=== PATIENT | male | born 1955 | race Caucasian/White ===

== ENCOUNTER → 2021-11-03 | Outpatient (CLI) | payer MEDICARE ==
[2021-11-03 12:43] LABS: Basophils # (A) 0.1 k/uL (0-0.2); Basophils % (A) 1 %; Eosinophils # (A) 0.5 k/uL (0-0.7); Eosinophils % (A) 6 %; HCT 52.1 % (39.0-53.0); HGB 16.3 gm/dL (13.0-17.5); Lymphocytes # (A) 1.3 k/uL (1.0-4.8); Lymphocytes % (A) 13 %; MCH 31.6 pg (25.0-35.0); MCHC 31.4 g/dL (31.0-37.0); MCV 100.7 fL (80.0-100.0); Macrocytosis Slight; Mean Platelet Volume 7.4; Monocytes # (A) 0.7 k/uL (0-1.0); Monocytes % (A) 7 %; Neutrophils % (A) 72 %; Platelet Count 334 k/uL (150-450); RBC 5.17 m/uL (4.30-5.90); RDW 13.9 % (11.5-15.5); WBC 9.7 k/uL (3.8-10.6)
[2021-11-03 13:00] LABS: African American GFR (CKD) >90 (>60 ml/min/1.73 sqM); Anion Gap 8 mmol/L; Blood Urea Nitrogen 11 mg/dL (9-20); Calcium 9.3 mg/dL (8.4-10.2); Carbon Dioxide 31 mmol/L (22-30); Chloride 100 mmol/L (98-107); Glucose 124 mg/dL (74-99); Non-African American GFR(CKD) >90 (>60 ml/min/1.73 sqM); Potassium 4.2 mmol/L (3.5-5.1); Sodium 139 mmol/L (137-145)
[2021-11-03 13:01] LABS: Amorphous Sediment,Urine Rare /hpf; Appearance,Urine Cloudy (Clear); Bacteria,Urine Rare /hpf; Bilirubin,Urine Negative (Negative); Blood,Urine Negative (Negative); Color,Urine Yellow; Glucose,Urine (UA) Negative (Negative); Hyaline Casts,Urine 1 /lpf (0-2); Ketones,Urine Negative (Negative); Leukocyte Esterase,Urine Large (Negative); Mucus,Urine Rare /hpf; Nitrite,Urine Positive (Negative); Protein,Urine Trace (Negative); RBC,Urine 3 /hpf (0-5); Specific Gravity,Urine 1.007 (1.001-1.035); Squamous Epithelial Cell,Urine <1 /hpf (0-4); Urobilinogen,Urine <2.0 mg/dL (<2.0); WBC,Urine 93 /hpf (0-5)
== END | disposition home or self-care (01) ==
LOC: LABPAT 12:08
PROVIDERS: ATTEND Urology
DX: Z01.812 Encounter for preprocedural laboratory examination (principal); N40.1 Benign prostatic hyperplasia with lower urinary tract symptoms; R31.29 Other microscopic hematuria
CPT/HCPCS: 80048; 81001; 85025; 87086

== ENCOUNTER → 2021-11-04 | Outpatient (CLI) | payer MEDICARE | END | disposition home or self-care (01) | LOC: LABPAT 14:23 | PROVIDERS: ATTEND Urology | DX: Z01.812 Encounter for preprocedural laboratory examination (principal) | CPT/HCPCS: 93005 ==

== ENCOUNTER 2021-11-11 05:45 | Inpatient (IN) | payer MEDICARE ==
[2021-11-04 13:43] VITALS: BMI 21.4
--- NOTE | 2021-11-10 09:40 | P.HPIHPCON ---
History of Present Illness H&P Date: 11/10/21 This a 66 yo male with hx of urinary retention, TRUS showed 132 gram prostate. Discussed given the size of his prostate the recommended approach is either a HoLEP or Robotic simple prostatecomy. discussed the risk and benefit of each procedure in detail. He agreed to proceed with a robotic simple prostatectomy. Discussed with him the risk of surgery which includes but not limited to bleeding, infection, injury to nearby organs which includes but not limited to bowel, ureter, rectum, or blood vessels.. Discussed also with him risk from anesthesia which includes but not limited to heart attack, stroke, blood clots. Discussed with him also the risk of persistent retention even with simple p rostatectomy. Discussed the risk of erectile dysfunction and urinary incontinence. He understood all the risk and agreed to proceed Consent for Procedure: I have explained the operation/procedure to the patient, including the risks, benefits, side effects, alternative therapies (including not receiving the proposed treatment or service), the likelihood of the patient achieving his/her goals, and potential recuperation problems for the procedure/sedation/analgesia, as well as any blood products, if indicated. I also explained to the patient the risks, benefits and side effects of the alternatives, as well as the risks related to not receiving the proposed procedure, care, treatment, or services. Past Medical History Past Medical History: COPD, Prostate Disorder History of Any Multi-Drug Resistant Organisms: None Reported Past Surgical History: Back Surgery Additional Past Surgical History / Comment(s): Back surgery for Scoliosis, kandy in back. Past Anesthesia/Blood Transfusion Reactions: No Reported Reaction Past Psychological History: No Psychological Hx Reported Smoking Status: Current every day smoker Past Alcohol Use History: None Reported Additional Past Alcohol Use History / Comment(s): Has been smoking for 50 yrs, 1 ppd. Past Drug Use History: None Reported - Past Family History Father Family Medical History: Cancer Medications and Allergies Home Medications Medication Instructions Recorded Confirmed Type Albuterol Sulfate [Proair 2 puff PO QID 11/04/21 11/04/21 History Respiclick] Budesonide-Formot 160-4.5 Mcg 2 puff INHALATION BID 11/04/21 11/04/21 History [Symbicort 160-4.5 Mcg Inhaler] Ipratropium/Albuter 20-100Mcg 1 puff INHALATION QID 11/04/21 11/04/21 History [Combivent Respimat 20-100Mcg Inhaler] Allergies Allergy/AdvReac Type Severity Reaction Status Date / Time No Known Allergies Allergy Verified 11/04/21 13:29 Surgical - Exam - General no distress, no pain - Eyes PERRL, no pale - ENT normal nares, normal mucosa - Respiratory normal expansion, normal respiratory effort - Abdomen Abdomen: soft, non tender - Psychiatric oriented to time, oriented to person, oriented to place Assessment and Plan Assessment: 66-year-old male with history of urinary retention -Or for robotic simple prostatectomy
[2021-11-11] MEDS ORDERED: ONDANSETRON 4 MG/2 ML VIAL ONE (06:27)
[2021-11-11] MEDS ORDERED: LACTATED RINGERS 1,000 ML IV ONE ×5 (06:29→14:14)
[2021-11-11] MEDS ORDERED: DEXAMETHASONE SOD PHOSPHATE 4 MG/ML 1 ML VIAL IVP ONE (06:29)
[2021-11-11] MEDS ORDERED: MIDAZOLAM 2 MG/2 ML VIAL IVP ONE (06:57)
[2021-11-11] MEDS ORDERED: fentaNYL (PF) 50 MCG/ML 2 ML AMP IVP ONE (06:57)
--- NOTE | 2021-11-11 07:24 | P.ANPRN ---
Procedure Note - Anesthesia - Nerve Block Performed Bilateral Erector Spinae Single Time Out Performed: Yes Date of Procedure: 11/11/21 Procedure Start Time: 06:56 Procedure Stop Time: 07:04 Location of Patient: PreOp Indication: Requested by Surgeon Specifically requested for management of pain by DrSujey: Michael Ruth Sedation Type: Sedate with meaningful contact maintained Preparation: Sterile Prep Position: Prone Needle Types: Pajunk Needle Gauge: 21 Ultrasound used to visualize needle placement: Yes Ultrasound used to observe medication spread: Yes Injectate: 0.5% Ropivacaine (see comment for volume) (15 ml plus 15 ml NS plus dexamethason 4 mg per side) Blood Aspirated: No Pain Paresthesia on Injection Noted: No Resistance on Injection: Normal Image Stored and Saved: Yes Events: Uneventful and Well Tolerated
[2021-11-11] MEDS ORDERED: PHENYLEPHRINE-0.9% NACL SYG 1,000 MCG/10 ML SYRINGE ONE (07:26)
[2021-11-11] MEDS ORDERED: SODIUM CHLORIDE 0.9% (PF) 10 ML VIAL ONE (07:26)
[2021-11-11] MEDS ORDERED: ROPIVACAINE 5 MG/ML 30 ML VIAL ONE (07:26)
[2021-11-11] MEDS ORDERED: SUCCINYLCHOLINE CHLORIDE 100 MG/5 ML SYR IV ONE (07:26)
[2021-11-11] MEDS ORDERED: ROCURONIUM 10 MG/ML (5 ML VIAL) IV ONE (07:26)
[2021-11-11] MEDS ORDERED: PROPOFOL 10 MG/ML 20 ML VIAL IV ONE (07:26)
[2021-11-11] MEDS ORDERED: NEOSTIGMINE 1 MG/ML 10 ML VIAL ONE (07:26)
[2021-11-11] MEDS ORDERED: DEXAMETHASONE SOD PHOSPHATE 4 MG/ML 1 ML VIAL ONE (07:26)
[2021-11-11] MEDS ORDERED: KETOROLAC 15 MG/ML 1 ML VIAL ONE (07:26)
[2021-11-11] MEDS ORDERED: GLYCOPYRROLATE 0.2 MG/ML 2 ML VIAL ONE (07:26)
[2021-11-11] MEDS ORDERED: fentaNYL (PF) 50 MCG/ML 2 ML AMP ONE (07:26)
[2021-11-11] MEDS ORDERED: LIDOCAINE 1% INJ 10MG/ML (20 ML MDV) ONE (07:26)
[2021-11-11] MEDS ORDERED: MIDAZOLAM 2 MG/2 ML VIAL ONE (07:26)
[2021-11-11] MEDS ORDERED: HYDROmorphone (PF) 1 MG/ML ONE (07:26)
[2021-11-11] MEDS ORDERED: HEPARIN SODIUM,PORCINE 5,000 UNIT/ML 1 ML VIAL SQ ONE (07:27)
[2021-11-11] MEDS ORDERED: BUPIVACAIN-EPI 0.25%-1:200,000 30 ML VIAL SQ ONE ×2 (07:55)
--- NOTE | 2021-11-11 11:00 | P.OP ---
Date of Procedure: 11/11/21 Preoperative Diagnosis: BPH, urinary retention Postoperative Diagnosis: Same Procedure(s) Performed: Robotic-assisted laparoscopic simple prostatectomy Implants: None Anesthesia: HARVEY Surgeon: Michael Ruth Gas Attendant #1: Tj Rivera Estimated Blood Loss (ml): 200 Pathology: other (prostate adenoma) Condition: stable Disposition: PACU Indications for Procedure: This a 66 yo male with hx of urinary retention, TRUS showed 132 gram prostate. Discussed given the size of his prostate the recommended approach is either a HoLEP or Robotic simple prostatecomy. discussed the risk and benefit of each procedure in detail. He agreed to proceed with a robotic simple prostatectomy. Discussed with him the risk of surgery which includes but not limited to bleeding, infection, injury to nearby organs which includes but not limited to bowel, ureter, rectum, or blood vessels.. Discussed also with him risk from anesthesia which includes but not limited to heart attack, stroke, blood clots. Discussed with him also the risk of persistent retention even with simple prostatectomy. Discussed the risk of erectile dysfunction and urinary incontinence. He understood all the risk and agreed to proceed Operative Findings: Significant a large prostate, significant medial lobe with intravesical extension Description of Procedure: After preoperative antibiotics were started, the patient was taken to the operating room. Anesthesia was induced and the patient was placed in a supine position with adequate padding of the pressure points, shoulders, back, legs and arms. He was then prepped and draped in the standard fashion. A critical pause was performed using two patient identifiers. A 16F springer catheter was placed to gravity drainage. A pneumoperitoneum was obtained using a Veress needle, after pneumoperitoneum was obtained a 8 mm camera port was placed. Under direct vision a 8mm robotic ports was placed lateral to each rectus slightly below the camera port. The left iliac fossa 8mm port was placed. The right educational program assistant right iliac fossa 12mm port and right paramedian 5mm portwere placed. After the patient was placed in the trendelenberg position, the robot was then docked to the 8mm robotic ports and then each robotic arm and tower was checked in relation to the patient's legs and hands to avoid inadvertent compression. The peritoneal cavity was inspected. Patient had extensive adhesions along the right lower quadrant that was taken down sharply An inverted U-shaped incision began laterally to the left medial umbilical ligament and extended high across the midline to the right umbilical ligament. The limbs of the "U" extended to the level of the vasa on both sides. We next developed the preperitoneal space and the space of Retzius. of Cautery was used to dissected the bladder away from the prostate, the incision was made in close proximity to the prostate, and incision was extended laterally and at this point the plane between the adenoma and the surgical capsule is identified. . Of note patient had an significantly enlarged median lobe with significant intravesical extension. Both ureteral orifices were identified and neither was injured during the dissection . The adenoma was dissected off of the capsule by combination of blunt dissection and minimum cautery. dissection was initially started along the anterior surface and posterior surface of adenoma, and this was carried laterally. The dissection was carried to the apex, at this point the urethral-prostatic junction was visualized and the prostate was salomon sected at the junction. Prostate adenoma was placed in an endocatch bag . A 9and 9 inch 3-0 V-Lock suture was used to anastomose the urethra and bladder, starting at the 6:00 posterior position. Mucosa was secured in every stitch, to ensure a mucosa to mucosa anastomosis. The stitch was regularly cinched and the anastomosis tightened. . The 20 Fr Springer catheter was advanced, the bladder filled, and the anastomosis was tested. Anastomsis was watertight at 150 mL. balloon was inflated to 10 mL The robot was undocked. specimen was extracted from the supraumbilical incision. Of note patient had a hernia superiorly, the hernia sac was excised The periumbilical fascia was closed with 1-0-PDS suture in figure of 8 fashion. All ports were closed with a subcuticular 4-0 monocryl and Dermabond. Sponge, instrument, and needle counts were correct at the end of the case x2. The patient tolerated the surgery well and without complication. He awoke without difficulty and was taken to the recovery room in stable condition
[2021-11-11] MEDS ORDERED: HYDROmorphone 0.5 MG/0.5 ML SYRINGE IVP ONE ×5 (11:51→15:50)
[2021-11-11] MEDS ORDERED: ALBUTEROL NEBULIZED 2.5 MG/3 ML INHALATION ONE (12:35)
[2021-11-11] MEDS ORDERED: ALBUTEROL SULFATE 90 MCG PO SCH (13:00)
[2021-11-11] MEDS ORDERED: LEVOFLOXACIN 500MG-D5W PMX 500 MG in DEXTROSE/WATER 1 100ML.BAG IVPB SCH (16:00)
[2021-11-11] MEDS: HEPARIN SODIUM,PORCINE/PF 5,000 UNIT/0.5 ML SYRINGE SQ SCH ×2 (16:47→23:57)
[2021-11-11] MEDS: IPRATROPIUM-ALBUTEROL 3 ML NEB INHALATION SCH ×2 (17:42→22:07)
[2021-11-11] MEDS: KETOROLAC 30 MG/ML 1 ML VIAL IVP SCH ×2 (18:04→23:57)
[2021-11-11] MEDS: D5-0.45% NACL WITH KCL 20MEQ/L 1,000 ML IV SCH (20:02)
[2021-11-11 20:41] VITALS: RESP 18
[2021-11-11] MEDS: SYMBICORT 160-4.5 MCG INHALER INHALATION SCH (22:07)
[2021-11-12 04:37] VITALS: BP 139/65; TEMP 98.1
[2021-11-12] MEDS: KETOROLAC 30 MG/ML 1 ML VIAL IVP SCH (05:11)
--- NOTE | 2021-11-12 08:03 | P.DS ---
Providers Date of admission: 11/11/21 05:45 Attending physician: Michael Ruth MD Primary care physician: [facility] Course: This is a 58-year-old male with history of urinary retention. He underwent a robotic simple prostatectomy on November 11. Please see op note dated November 11 for surgery detail. He was admitted to the hospital postoperatively. He did well in the postoperative period, he was discharged home on postop day #1, at time of discharge he was tolerating a diet, ambulating, pain was well-controlled Plan - Discharge Summary Discharge Rx Participant: Yes New Discharge Prescriptions: New Ketorolac [Toradol] 10 mg PO Q6HR PRN #15 tab PRN Reason: Pain No Action Budesonide-Formot 160-4.5 Mcg [Symbicort 160-4.5 Mcg Inhaler] 2 puff INHALATION BID Ipratropium/Albuter 20-100Mcg [Combivent Respimat 20-100Mcg Inhaler] 1 puff INHALATION QID Albuterol Sulfate [Proair Respiclick] 2 puff PO QID Discharge Medication List Albuterol Sulfate [Proair Respiclick] 2 puff PO QID 11/04/21 [History] Budesonide-Formot 160-4.5 Mcg [Symbicort 160-4.5 Mcg Inhaler] 2 puff INHALATION BID 11/04/21 [History] Ipratropium/Albuter 20-100Mcg [Combivent Respimat 20-100Mcg Inhaler] 1 puff INHALATION QID 11/04/21 [History] Ketorolac [Toradol] 10 mg PO Q6HR PRN #15 tab 11/12/21 [Rx] Activity/Diet/Wound Care/Special Instructions: No heavy lifting or straining for 4 weeks You may shower but no baths Increase fluid intake It is normal to see blood in the urine Discharge Disposition: HOME SELF-CARE
[2021-11-12] MEDS: IPRATROPIUM-ALBUTEROL 3 ML NEB INHALATION SCH (08:08)
[2021-11-12] MEDS: SYMBICORT 160-4.5 MCG INHALER INHALATION SCH (08:08)
[2021-11-12 08:30] VITALS: PULSE 85
[2021-11-12] MEDS: HEPARIN SODIUM,PORCINE/PF 5,000 UNIT/0.5 ML SYRINGE SQ SCH (09:06)
[2021-11-12] MEDS: D5-0.45% NACL WITH KCL 20MEQ/L 1,000 ML IV SCH ×2 (11:19)
== END 2021-11-12 11:36 | disposition home or self-care (01) | DRG 708 ==
LOC: 2ORMAIN 05:45 → 5NMEDONC 15:38
PROVIDERS: ADMIT Urology; ATTEND Urology
PROC: 0VT04ZZ Resection of Prostate, Percutaneous Endoscopic Approach (ICD-10-PCS; principal; 2021-11-11 07:30)
PROC: 8E0W4CZ Robotic Assisted Procedure of Trunk Region, Percutaneous Endoscopic Approach (ICD-10-PCS; principal; 2021-11-11 07:30)
DX: N40.1 Benign prostatic hyperplasia with lower urinary tract symptoms (principal); F17.210 Nicotine dependence, cigarettes, uncomplicated; J44.9 Chronic obstructive pulmonary disease, unspecified; Z20.822 Contact with and (suspected) exposure to COVID-19; R33.8 Other retention of urine; Z79.51 Long term (current) use of inhaled steroids; Z79.899 Other long term (current) drug therapy; Z87.39 Personal history of other diseases of the musculoskeletal system and connective tissue; Z98.890 Other specified postprocedural states; Z80.9 Family history of malignant neoplasm, unspecified
CPT/HCPCS: 76942; 86850; 86900; 86901; 87635; 88307; 94640; 94760

== ENCOUNTER → 2023-10-30 | Outpatient (CLI) | payer MEDICARE ==
--- NOTE | 2023-10-30 12:31 | MR ---
MRI CERVICAL SPINE: CLINICAL HISTORY: Colon cancer TECHNIQUE: Multiplanar, multisequence imaging of the cervical spine is performed without and with IV contrast, 5 cc of abdomen was given intravenously. COMPARISON: None FINDINGS: There is a severe scoliotic curvature of the spine. There is degenerative disc disease at levels C2-T 1 compatible severe multilevel degenerative disc disease. Posterior spurring with disc osteophyte com plex at C4-C5. There is uncovertebral joint hypertrophy and mild foraminal encroachment at virtually all levels. There is a rounded area of abnormal signal involving the C3, C6 and C7 vertebral body. There is low lying cerebellar tonsils. Partially empty sella turcica. At the level of T2 there is expansion and abnormal diffuse signal resulting in anterior mild compress ion of the spinal cord. There are multiple additional rounded areas of abnormal signal seen scattered throughout the visualiz ed thoracic segments. Assessment is limited due to previous surgical change artifact as well as sever e scoliosis. Findings are suspicious for right-sided pulmonary mass. Secondary to the scoliosis there is multilevel foraminal impingement and degenerative disc disease th roughout the thoracic spine. Artifact does limit assessment. Results called to patient's referring ph ysician 12:28 PM 10/30/2023. IMPRESSION: Severely limited exam due to scoliosis and artifact from postsurgical changes. 1. There are numerous areas of abnormal signal scattered throughout the cervical and thoracic vertebr al segments highly suggestive of widespread metastases. 2. There is expansion of the T2 vertebral body with mild anterior spinal cord compression. Findings a re felt to be on the basis of metastases. Findings suspicious for a pathologic fracture. Given limita tions of the exam recommend follow-up CT scan. 3. Right sided pulmonary mass.
== END | disposition home or self-care (01) ==
LOC: RADMRIMAIN 08:29
PROVIDERS: ATTEND Internal Medicine
DX: C18.2 Malignant neoplasm of ascending colon (principal); G95.20 Unspecified cord compression; R91.8 Other nonspecific abnormal finding of lung field; M41.82 Other forms of scoliosis, cervical region
CPT/HCPCS: 72156; 72157; A9585

== ENCOUNTER 2023-12-08 13:22 | Emergency (ER) | payer MEDICARE ==
[2023-12-08 13:34] VITALS: TEMP 98.1
--- NOTE | 2023-12-08 14:58 | ED ---
General Adult HPI - General Source: patient, family, RN notes reviewed Mode of arrival: wheelchair Limitations: no limitations <Artie Khan - Last Filed: 12/08/23 14:44> - General Source: RN notes reviewed, old records reviewed Mode of arrival: wheelchair Limitations: no limitations - History of Present Illness -: days(s) Location: abdomen Radiation: abdomen Severity scale (1-10): 4 Quality: aching Consistency: constant Improves with: none Worsens with: none Associated Symptoms: denies other symptoms Treatments Prior to Arrival: none <Ben Woo - Last Filed: 12/20/23 10:14> - General Chief complaint: Urogenital Stated complaint: Blood in urine Time Seen by Provider: 12/08/23 14:32 - History of Present Illness Initial comments: 68-year-old male presents emergency department from oncology for evaluation of hematuria. Patient has colon cancer with metastasis. Patient was supposed to start chemotherapy today but he is having worsening hematuria. He denies any pain states he has no change in symptoms he does have COPD is been recently oxygen dependent. Patient has had prior colon resection by Dr. Abrams. He denies any flank pain denies history of kidney stones. (Artie Khan) This is a 68-year-old male to ER for evaluation of urine, blood in the urine with known colon cancer and metastasis. Patient has severe flank pain and hematuria severe back pain and abdominal pain. This is his normal cancer pain, patient states he was too weak to undergo chemotherapy today and feels very fatigued, here for evaluation of blood in the urine (Ben Woo) - Related Data Home Medications Medication Instructions Recorded Confirmed Albuterol Sulfate [Proair 2 puff PO QID 11/04/21 11/04/21 Respiclick] Budesonide-Formot 160-4.5 Mcg 2 puff INHALATION BID 11/04/21 11/04/21 [Symbicort 160-4.5 Mcg Inhaler] Ipratropium/Albuter 20-100Mcg 1 puff INHALATION QID 11/04/21 11/04/21 [Combivent Respimat 20-100Mcg Inhaler] Previous Rx's Medication Instructions Recorded Ketorolac [Toradol] 10 mg PO Q6HR PRN #15 tab 11/12/21 Ciprofloxacin HCl [Cipro] 500 mg PO Q12HR #20 tablet 12/08/23 Allergies Allergy/AdvReac Type Severity Reaction Status Date / Time No Known Allergies Allergy Verified 12/08/23 13:33 Review of Systems ROS Other: All systems not noted in ROS Statement are negative. <Artie Khan - Last Filed: 12/08/23 14:44> ROS Other: All systems not noted in ROS Statement are negative. <Ben Woo - Last Filed: 12/20/23 10:14> ROS Statement: Those systems with pertinent positive or pertinent negative responses have been documented in the HPI. Past Medical History Past Medical History: Cancer, COPD, Prostate Disorder History of Any Multi-Drug Resistant Organisms: None Reported Past Surgical History: Back Surgery Additional Past Surgical History / Comment(s): Back surgery for Scoliosis, kandy in back. Past Anesthesia/Blood Transfusion Reactions: No Reported Reaction Past Psychological History: No Psychological Hx Reported Smoking Status: Current every day smoker Past Alcohol Use History: None Reported Past Drug Use History: None Reported - Past Family History Father Family Medical History: Cancer <Artie Khan - Last Filed: 12/08/23 14:44> General Exam Limitations: no limitations General appearance: alert, in no apparent distress Head exam: Present: atraumatic, normocephalic, normal inspection Eye exam: Present: normal appearance, PERRL, EOMI. Absent: scleral icterus, conjunctival injection, periorbital swelling Neck exam: Present: normal inspection, full ROM. Absent: tenderness, meningismus, lymphadenopathy Respiratory exam: Present: wheezes, decreased breath sounds. Absent: normal lung sounds bilaterally, respiratory distress, rales, rhonchi, stridor Cardiovascular Exam: Present: normal rhythm, tachycardia, normal heart sounds. Absent: systolic murmur, diastolic murmur, rubs, gallop, clicks GI/Abdominal exam: Present: soft, normal bowel sounds. Absent: distended, tenderness, guarding, rebound, rigid <Artie Khan - Last Filed: 12/08/23 14:44> General appearance: alert, in no apparent distress, anxious Head exam: Present: atraumatic, normocephalic, normal inspection Eye exam: Present: normal appearance, PERRL, EOMI. Absent: scleral icterus, conjunctival injection, periorbital swelling ENT exam: Present: normal exam, mucous membranes moist Neck exam: Present: normal inspection. Absent: tenderness, meningismus, lymphadenopathy Respiratory exam: Present: normal lung sounds bilaterally. Absent: respiratory distress, wheezes, rales, rhonchi, stridor Cardiovascular Exam: Present: regular rate, normal rhythm, normal heart sounds. Absent: systolic murmur, diastolic murmur, rubs, gallop, clicks GI/Abdominal exam: Present: soft, normal bowel sounds. Absent: distended, tenderness, guarding, rebound, rigid Extremities exam: Present: normal inspection, full ROM, normal capillary refill. Absent: tenderness, pedal edema, joint swelling, calf tenderness Back exam: Present: normal inspection Neurological exam: Present: alert, oriented X3, CN II-XII intact Psychiatric exam: Present: normal affect, normal mood Skin exam: Present: warm, dry, intact, normal color. Absent: rash <Ben Woo - Last Filed: 12/20/23 10:14> Course <Ben Woo - Last Filed: 12/20/23 10:14> Vital Signs 12/08/23 12/08/23 12/08/23 13:30 16:37 17:19 Temperature 98.1 F Pulse Rate 102 H 78 84 Respiratory 22 20 Rate Blood Pressure 130/72 164/85 O2 Sat by Pulse 91 L 95 Oximetry 12/08/23 12/08/23 17:28 18:11 Temperature 98.1 F Pulse Rate 84 75 Respiratory 22 Rate Blood Pressure 142/80 O2 Sat by Pulse 94 L Oximetry - Reevaluation(s) Reevaluation #1: Medical records reviewed (Ben Woo) Reevaluation #2: Patient symptoms improved (Ben Woo) Reevaluation #3: Patient informed of results questions answered (Ben Woo) Reevaluation #4: Was pt. sent in by a medical professional or institution (, PA, TOWEL DISTRIBUTOR, urgent care, hospital, or [facility]...) When possible be specific @ -no Did you speak to anyone other than the patient for history (EMS, parent, family, police, friend...)? What history was obtained from this source @ -no Did you review nursing and triage notes (agree or disagree)? Why? @ -agree Are old charts reviewed (outside hosp., previous admission, EMS record, old EKG, old radiological studies, urgent care reports/EKG's, [facility] records)? Report findings @ -yes Differential Diagnosis (chest pain, altered mental status, abdominal pain women, abdominal pain men, vaginal bleeding, weakness, fever, dyspnea, syncope, headache, dizziness, GI bleed, back pain, seizure, CVA, palpatations, mental health, musculoskeletal)? @ -prior EKG interpreted by me (3pts min.). @ -no X-rays interpreted by me (1pt min.). @ -no CT interpreted by me (1pt min.). @ -yes negative for acute disease U/S interpreted by me (1pt. min.). @ -no What testing was considered but not performed or refused? (CT, X-rays, U/S, labs)? Why? @ -none What meds were considered but not given or refused? Why? @ -none Did you discuss the management of the patient with other professionals (professionals i.e. , PA, TOWEL DISTRIBUTOR, lab, RT, psych nurse, social worker masters, public health outreach worker, teacher, traffic division commanding officer, case management director)? Give summary @ -no Was smoking cessation discussed for >3mins.? @ -no Was critical care preformed (if so, how long)? @ -no Were there social determinants of health that impacted care today? How? (Homelessness, low income, unemployed, alcoholism, drug addiction, transportation, low edu. Level, literacy, decrease access to med. care, halfway, rehab)? @ -none Was there de-escalation of care discussed even if they declined (Discuss DNR or withdrawal of care, Hospice)? DNR status @ -no What co-morbidities impacted this encounter? (DM, HTN, Smoking, COPD, CAD, Cancer, CVA, ARF, Chemo, Hep., AIDS, mental health diagnosis, sleep apnea, morbid obesity)? @ -none Was patient admitted / discharged? Hospital course, mention meds given and route, prescriptions, significant lab abnormalities, going to OR and other pertinent info. @ - 68 male to the ER for evaluation of significant weakness, found to have blood in the urine and states he was unable to do chemotherapy secondary to significant amount of weakness here in the emergency department, patient has likely recurrent urinary tract infection placed on antibiotics he does not want to incur hospital admission at this time, he will be discharged home Discharge Undiagnosed new problem with uncertain prognosis? @ -no Drug Therapy requiring intensive monitoring for toxicity (Heparin, Nitro, Insulin, Cardizem)? @ -no Were any procedures done? @ -no Diagnosis/symptom? @ -UTI and hematuria, weakness Acute, or Chronic, or Acute on Chronic? @ -Acute Uncomplicated (without systemic symptoms) or Complicated (systemic symptoms)? @ -Complicated Side effects of treatment? @ -no Exacerbation, Progression, or Severe Exacerbation? @ -exacerbation Poses a threat to life or bodily function? How? (Chest pain, [place], [place], pneumonia, PE, COPD, DKA, ARF, appy, cholecystitis, CVA, Diverticulitis, Homicidal, Suicidal, threat to staff... and all critical care pts) @ -yes extremes of age with ongoing chemotherapy for cancer (Ben Woo) Reevaluation #5: Differential Abdominal Pain Men: Appendicitis, cholecystitis, diverticulosis, ischemic bowel, pancreatitis, hepatitis, UTI, gastroenteritis, AAA, incarcerated hernia, bowel obstruction, constipation, inflammatory bowel, hepatitis, peptic ulcer disease, splenic infarction, perforated viscus, testicular torsion, this is not meant to be an all-inclusive list (Ben Woo) Medical Decision Making - Lab Data Result diagrams: 12/08/23 15:30 12/08/23 15:30 - Radiology Data Radiology results: report reviewed (CT abdomen pelvis is negative for new acute disease), image reviewed <Ben Woo - Last Filed: 12/20/23 10:14> - Medical Decision Making 68 male to the ER for evaluation of significant weakness, found to have blood in the urine and states he was unable to do chemotherapy secondary to significant amount of weakness here in the emergency department, patient has likely recurrent urinary tract infection placed on antibiotics he does not want to incur hospital admission at this time, he will be discharged home (Ben Woo) - Lab Data Lab Results 12/08/23 12/08/23 12/08/23 Range/Units 15:30 15:30 15:30 WBC 16.7 H (3.8-10.6) k/uL RBC 3.29 L (4.30-5.90) m/uL Hgb 10.8 L (13.0-17.5) gm/dL Hct 30.7 L (39.0-53.0) % MCV 93.5 (80.0-100.0) fL MCH 32.8 (25.0-35.0) pg MCHC 35.1 (31.0-37.0) g/dL RDW 14.2 (11.5-15.5) % Plt Count 191 (150-450) k/uL MPV 9.0 Neutrophils % 90 % Lymphocytes % 4 % Monocytes % 4 % Eosinophils % 1 % Basophils % 0 % Neutrophils # 15.0 H (1.3-7.7) k/uL Lymphocytes # 0.7 L (1.0-4.8) k/uL Monocytes # 0.7 (0-1.0) k/uL Eosinophils # 0.1 (0-0.7) k/uL Basophils # 0.1 (0-0.2) k/uL PT 12.8 H (10.0-12.5) sec INR 1.2 H (<1.2) APTT 23.5 (22.0-30.0) sec Sodium 137 (137-145) mmol/L Potassium 4.2 (3.5-5.1) mmol/L Chloride 100 (98-107) mmol/L Carbon Dioxide 37 H (22-30) mmol/L Anion Gap 0 mmol/L BUN 32 H (9-20) mg/dL Creatinine 0.73 (0.66-1.25) mg/dL Est GFR (CKD-EPI)AfAm >90 (>60 ml/min/1.73 sqM) Est GFR (CKD-EPI)NonAf >90 (>60 ml/min/1.73 sqM) Glucose 102 H (74-99) mg/dL Calcium 10.8 H (8.4-10.2) mg/dL Total Bilirubin 0.6 (0.2-1.3) mg/dL AST 65 H (17-59) U/L ALT 30 (4-49) U/L Alkaline Phosphatase 688 H (38-126) U/L Total Protein 6.1 L (6.3-8.2) g/dL Albumin 3.4 L (3.5-5.0) g/dL Lipase 63 (23-300) U/L Urine Color Urine Appearance (Clear) Urine RBC (0-5) /hpf Urine WBC (0-5) /hpf Urine Bacteria (None) /hpf 12/08/23 Range/Units 17:03 WBC (3.8-10.6) k/uL RBC (4.30-5.90) m/uL Hgb (13.0-17.5) gm/dL Hct (39.0-53.0) % MCV (80.0-100.0) fL MCH (25.0-35.0) pg MCHC (31.0-37.0) g/dL RDW (11.5-15.5) % Plt Count (150-450) k/uL MPV Neutrophils % % Lymphocytes % % Monocytes % % Eosinophils % % Basophils % % Neutrophils # (1.3-7.7) k/uL Lymphocytes # (1.0-4.8) k/uL Monocytes # (0-1.0) k/uL Eosinophils # (0-0.7) k/uL Basophils # (0-0.2) k/uL PT (10.0-12.5) sec INR (<1.2) APTT (22.0-30.0) sec Sodium (137-145) mmol/L Potassium (3.5-5.1) mmol/L Chloride (98-107) mmol/L Carbon Dioxide (22-30) mmol/L Anion Gap mmol/L BUN (9-20) mg/dL Creatinine (0.66-1.25) mg/dL Est GFR (CKD-EPI)AfAm (>60 ml/min/1.73 sqM) Est GFR (CKD-EPI)NonAf (>60 ml/min/1.73 sqM) Glucose (74-99) mg/dL Calcium (8.4-10.2) mg/dL Total Bilirubin (0.2-1.3) mg/dL AST (17-59) U/L ALT (4-49) U/L Alkaline Phosphatase (38-126) U/L Total Protein (6.3-8.2) g/dL Albumin (3.5-5.0) g/dL Lipase (23-300) U/L Urine Color Red Urine Appearance Bloody (Clear) Urine RBC >182 H (0-5) /hpf Urine WBC 38 H (0-5) /hpf Urine Bacteria Few H (None) /hpf Disposition <Artie Khan - Last Filed: 12/08/23 14:44> Is patient prescribed a controlled substance at d/c from ED?: No Time of Disposition: 17:40 <Ben Woo - Last Filed: 12/20/23 10:14> Clinical Impression: Urinary tract infection, Hematuria Disposition: HOME SELF-CARE Condition: Good Instructions (If sedation given, give patient instructions): Urinary Tract Infection in Men (ED), Hematuria (ED) Prescriptions: Ciprofloxacin HCl [Cipro] 500 mg PO Q12HR #20 tablet Referrals: Omi Randall DO [Primary Care Provider] - 1-2 days
[2023-12-08] MEDS: SODIUM CHLORIDE 0.9% 500 ML 500 ML IV STA ×2 (15:31→17:58)
[2023-12-08 15:46] LABS: Basophils # (A) 0.1 k/uL (0-0.2); Basophils % (A) 0 %; Eosinophils # (A) 0.1 k/uL (0-0.7); Eosinophils % (A) 1 %; HCT 30.7 % (39.0-53.0); HGB 10.8 gm/dL (13.0-17.5); Lymphocytes # (A) 0.7 k/uL (1.0-4.8); Lymphocytes % (A) 4 %; MCH 32.8 pg (25.0-35.0); MCHC 35.1 g/dL (31.0-37.0); MCV 93.5 fL (80.0-100.0); Monocytes # (A) 0.7 k/uL (0-1.0); Monocytes % (A) 4 %; Neutrophils % (A) 90 %; Platelet Count 191 k/uL (150-450); RBC 3.29 m/uL (4.30-5.90); RDW 14.2 % (11.5-15.5); WBC 16.7 k/uL (3.8-10.6)
[2023-12-08 15:52] LABS: INR 1.2 (<1.2); Partial Thromboplastin Time 23.5 sec (22.0-30.0); Prothrombin Time 12.8 sec (10.0-12.5)
[2023-12-08 16:24] LABS: ALT 30 U/L (4-49); AST 65 U/L (17-59); African American GFR (CKD) >90 (>60 ml/min/1.73 sqM); Albumin 3.4 g/dL (3.5-5.0); Anion Gap 0 mmol/L; Blood Urea Nitrogen 32 mg/dL (9-20); Calcium 10.8 mg/dL (8.4-10.2); Carbon Dioxide 37 mmol/L (22-30); Chloride 100 mmol/L (98-107); Glucose 102 mg/dL (74-99); Lipase 63 U/L (23-300); Non-African American GFR(CKD) >90 (>60 ml/min/1.73 sqM); Potassium 4.2 mmol/L (3.5-5.1); Sodium 137 mmol/L (137-145); Total Bilirubin 0.6 mg/dL (0.2-1.3); Total Protein 6.1 g/dL (6.3-8.2)
--- NOTE | 2023-12-08 16:53 | CT ---
EXAMINATION TYPE: CT abdomen pelvis wo con DATE OF EXAM: 12/08/2023 COMPARISON: None HISTORY: hematuria, colon CA with mets CT DLP: 289.4 mGycm Automated exposure control for dose reduction was used. TECHNIQUE: Helical acquisition of images was performed from the lung bases through the pelvis. FINDINGS: There are few scattered ill-defined reticulonodular densities in the left lung base suspicious for me tastatic disease given the provided history. There is marked dextrorotoscoliosis of the lumbar spine. Exam is limited due to lack of contrast. There is no organomegaly involving the liver, pancreas, spleen or adrenal glands. There is a 6.4 mm nonobstructing left renal calculus. Caliber of the abdominal aorta is normal. There are multiple ill-defined masses in the retroperitoneum largest of which is 3.4 cm and is consis tent with retroperitoneal adenopathy There is a 3.6 cm mass in the left inguinal region consistent with adenopathy. Multiple lytic lesions are suspected within the pelvis and hips. Correlate with bone scan if clinical ly indicated.. IMPRESSION: 1. Scattered small reticular nodular densities in the left lung base suspicious for metastatic diseas e. 2. Limited evaluation of the abdomen and pelvis secondary to marked dextroscoliosis of the lumbar spi ne secondary to lack of IV contrast. 3. 6.4 mm nonobstructing left renal calcification. 4. Retroperitoneal adenopathy. 5 enlarged lymph node/mass in the left inguinal region. 6. Multiple lytic osseous lesions are suspected in the pelvis and hips. Correlate with bone scan if c linically indicated.
[2023-12-08 17:01] LABS: Alkaline Phosphatase 688 U/L (38-126)
[2023-12-08 17:15] LABS: Bacteria,Urine Few /hpf; RBC,Urine >182 /hpf (0-5); WBC,Urine 38 /hpf (0-5)
[2023-12-08] MEDS: IPRATROPIUM-ALBUTEROL 3 ML NEB INHALATION STA (17:19)
[2023-12-08 17:21] LABS: Appearance,Urine Bloody (Clear); Color,Urine Red
[2023-12-08] MEDS: cefTRIAXone IN SWFI 1,000 MG/10 ML SYRINGE IVP STA (18:03)
[2023-12-08] MEDS: CIPROFLOXACIN HCL 500 MG TAB PO STA (18:04)
[2023-12-08 18:28] VITALS: BP 142/80; PULSE 75; RESP 22
== END 2023-12-08 18:13 | disposition home or self-care (01) ==
LOC: EC 13:22
DX: N39.0 Urinary tract infection, site not specified (principal); J44.9 Chronic obstructive pulmonary disease, unspecified; F17.200 Nicotine dependence, unspecified, uncomplicated; Z79.899 Other long term (current) drug therapy; Z79.51 Long term (current) use of inhaled steroids
CPT/HCPCS: 51798; 36415; 94640; 80053; 83690; 85025; 85610; 85730; 81001; 74176; 99285; 96374; J0696

== ENCOUNTER 2023-12-24 18:15 | Inpatient (IN) | payer MEDICARE ==
--- NOTE | 2023-12-24 18:24 | ED ---
SOB HPI - General Stated Complaint: sob Time Seen by Provider: 12/24/23 18:21 Source: RN notes reviewed, old records reviewed Limitations: no limitations - History of Present Illness Initial Comments: This is a 68-year-old male unable to provide history currently secondary to work of breathing., On BiPAP secondary to respiratory distress respiratory failure MD Complaint: shortness of breath Severity: severe Severity scale (1-10): 10 Consistency: constant Improves With: nothing Worsens With: nothing Known History Of: COPD, asthma Context: recent URI, recent illness Associated Symptoms: chest pain, cough, sputum production Treatments Prior to Arrival: none - Related Data Home Medications Medication Instructions Recorded Confirmed Budesonide-Formot 160-4.5 Mcg 1 - 2 puff INHALATION RT-QID 11/04/21 12/25/23 [Symbicort 160-4.5 Mcg Inhaler] Ipratropium/Albuter 20-100Mcg 1 puff INHALATION RT-QID 11/04/21 12/25/23 [Combivent Respimat 20-100Mcg Inhaler] Albuterol Inhaler [Ventolin Hfa 1 - 2 puff INHALATION RT-Q6H PRN 12/24/23 12/25/23 Inhaler] Albuterol Nebulized [Ventolin 2.5 mg INHALATION RT-QID 12/24/23 12/25/23 Nebulized] Cholecalciferol [Vitamin D3 (25 50 mcg PO DAILY 12/24/23 12/25/23 Mcg = 1000 Iu)] Dm/Acetaminophen/Doxylamine [Vicks 30 ml PO HS 12/24/23 12/25/23 Nyquil Cold-Flu Liquid] Levofloxacin [Levaquin] 500 mg PO DAILY 12/24/23 12/25/23 Methyl Salicylate/Menth/Camph 1 patch TOPICAL DAILY PRN 12/24/23 12/25/23 [Salonpas 3.1%-6.0%-10.0% Patch] Mv-Min/Folic/K1/Lycopen/Lutein 1 tab PO DAILY 12/24/23 12/25/23 [Centrum Silver Men Tablet] Nicotine 14Mg/24Hr Patch [Habitrol 1 patch TRANSDERM DAILY 12/24/23 12/25/23 14Mg/24Hr Patch] Sodium Chloride [[place]] 1 spray EA NOSTRIL QID PRN 12/24/23 12/25/23 predniSONE 5 mg PO DAILY 12/24/23 12/25/23 traMADol HCL 50 mg PO Q6H PRN 12/24/23 12/25/23 Allergies Allergy/AdvReac Type Severity Reaction Status Date / Time No Known Allergies Allergy Verified 12/24/23 19:30 Review of Systems ROS Statement: Those systems with pertinent positive or pertinent negative responses have been documented in the HPI. ROS Other: All systems not noted in ROS Statement are negative. Past Medical History Past Medical History: Cancer, COPD, Prostate Disorder History of Any Multi-Drug Resistant Organisms: None Reported Past Surgical History: Back Surgery Additional Past Surgical History / Comment(s): Back surgery for Scoliosis, kandy in back. Past Anesthesia/Blood Transfusion Reactions: No Reported Reaction Past Psychological History: No Psychological Hx Reported Smoking Status: Current every day smoker Past Alcohol Use History: None Reported Past Drug Use History: None Reported - Past Family History Father Family Medical History: Cancer General Exam General appearance: alert, anxious, in distress Head exam: Present: atraumatic, normocephalic, normal inspection Eye exam: Present: normal appearance, PERRL, EOMI. Absent: scleral icterus, conjunctival injection, periorbital swelling ENT exam: Present: normal exam, mucous membranes moist Neck exam: Present: normal inspection. Absent: tenderness, meningismus, lymphadenopathy Respiratory exam: Present: respiratory distress, wheezes, accessory muscle use, decreased breath sounds, prolonged expiratory. Absent: rales, rhonchi, stridor Cardiovascular Exam: Present: regular rate, normal rhythm, normal heart sounds. Absent: systolic murmur, diastolic murmur, rubs, gallop, clicks GI/Abdominal exam: Present: soft, normal bowel sounds. Absent: distended, tenderness, guarding, rebound, rigid Extremities exam: Present: normal inspection, full ROM, normal capillary refill. Absent: tenderness, pedal edema, joint swelling, calf tenderness Back exam: Present: normal inspection Neurological exam: Present: alert, oriented X3, CN II-XII intact Psychiatric exam: Present: normal affect, normal mood Skin exam: Present: warm, dry, intact, normal color. Absent: rash Course Vital Signs 12/24/23 12/24/23 12/24/23 18:18 18:23 18:25 Temperature 97.5 F L Pulse Rate 135 H 122 H Respiratory 34 H 30 H Rate Blood Pressure 110/67 98/67 O2 Sat by Pulse 96 Oximetry Fraction of 100 Inspired Oxygen (FIO2) 12/24/23 12/24/23 12/24/23 18:38 18:49 18:50 Temperature Pulse Rate 114 H 118 H Respiratory Rate Blood Pressure O2 Sat by Pulse Oximetry Fraction of 70 Inspired Oxygen (FIO2) 12/24/23 12/24/23 12/24/23 18:51 18:54 19:09 Temperature Pulse Rate 118 H 118 H Respiratory Rate Blood Pressure O2 Sat by Pulse Oximetry Fraction of 50 Inspired Oxygen (FIO2) 12/24/23 12/24/23 12/24/23 19:44 20:00 21:00 Temperature Pulse Rate 112 H 112 H 112 H Respiratory 21 25 H 14 Rate Blood Pressure 109/69 104/69 124/83 O2 Sat by Pulse 99 99 97 Oximetry Fraction of Inspired Oxygen (FIO2) 12/24/23 12/24/23 12/24/23 21:14 22:00 22:24 Temperature 101.9 F H Pulse Rate 117 H 113 H Respiratory 26 H 16 Rate Blood Pressure 135/77 130/64 O2 Sat by Pulse 98 Oximetry Fraction of 40 Inspired Oxygen (FIO2) 12/25/23 12/25/23 12/25/23 00:05 00:07 00:46 Temperature 98.5 F Pulse Rate 97 96 Respiratory 14 Rate Blood Pressure 137/77 100/63 O2 Sat by Pulse 99 99 Oximetry Fraction of Inspired Oxygen (FIO2) 12/25/23 12/25/23 12/25/23 01:00 01:09 02:00 Temperature Pulse Rate 100 95 Respiratory Rate Blood Pressure 100/63 137/82 O2 Sat by Pulse 97 98 Oximetry Fraction of 40 Inspired Oxygen (FIO2) 12/25/23 12/25/23 12/25/23 03:00 03:45 04:00 Temperature 98.5 F Pulse Rate 123 H 130 H 100 Respiratory 28 H 16 Rate Blood Pressure 119/72 120/78 120/78 O2 Sat by Pulse 95 98 98 Oximetry Fraction of Inspired Oxygen (FIO2) 12/25/23 12/25/23 12/25/23 04:19 05:00 06:00 Temperature Pulse Rate 92 101 H Respiratory 19 Rate Blood Pressure 107/74 109/85 O2 Sat by Pulse 96 98 Oximetry Fraction of 40 Inspired Oxygen (FIO2) 12/25/23 12/25/23 12/25/23 07:27 07:59 09:05 Temperature 99.5 F Pulse Rate 118 H 92 Respiratory 30 H 22 Rate Blood Pressure 115/84 O2 Sat by Pulse 96 93 L Oximetry Fraction of 40 Inspired Oxygen (FIO2) - Reevaluation(s) Reevaluation #1: 12/24/23 18:21 Medical records reviewed Reevaluation #2: 12/24/23 19:10 Patient is more improved with pain management and anxiolysis patient still has heavy work of breathing Reevaluation #3: 12/24/23 19:10 Patient informed of results and questions answered Reevaluation #4: Was pt. sent in by a medical professional or institution (JOHNNIE Fontanez, LOCOMOTIVE ENGINEER, urgent care, hospital, or retirement...) When possible be specific @ -no Did you speak to anyone other than the patient for history (EMS, parent, family, police, friend...)? What history was obtained from this source @ -no Did you review nursing and triage notes (agree or disagree)? Why? @ -agree Are old charts reviewed (outside hosp., previous admission, EMS record, old EKG, old radiological studies, urgent care reports/EKG's, retirement records)? Report findings @ -yes Differential Diagnosis (chest pain, altered mental status, abdominal pain women, abdominal pain men, vaginal bleeding, weakness, fever, dyspnea, syncope, headache, dizziness, GI bleed, back pain, seizure, CVA, palpatations, mental health, musculoskeletal)? @ -prior EKG interpreted by me (3pts min.). @ -yes X-rays interpreted by me (1pt min.). @ -yes negative for acute disease CT interpreted by me (1pt min.). @ -no U/S interpreted by me (1pt. min.). @ -no What testing was considered but not performed or refused? (CT, X-rays, U/S, labs)? Why? @ -none What meds were considered but not given or refused? Why? @ -none Did you discuss the management of the patient with other professionals (professionals i.e. JOHNNIE Fontanez, LOCOMOTIVE ENGINEER, lab, RT, psych nurse, social service liaison, coordinator skill training program, teacher, detention officer, patient case manager)? Give summary @ -no Was smoking cessation discussed for >3mins.? @ -no Was critical care preformed (if so, how long)? @ -no Were there social determinants of health that impacted care today? How? (Homelessness, low income, unemployed, alcoholism, drug addiction, transportation, low edu. Level, literacy, decrease access to med. care, halfway, rehab)? @ -none Was there de-escalation of care discussed even if they declined (Discuss DNR or withdrawal of care, Hospice)? DNR status @ -no What co-morbidities impacted this encounter? (DM, HTN, Smoking, COPD, CAD, Cancer, CVA, ARF, Chemo, Hep., AIDS, mental health diagnosis, sleep apnea, morbid obesity)? @ -none Was patient admitted / discharged? Hospital course, mention meds given and route, prescriptions, significant lab abnormalities, going to OR and other pertinent info. @ - 68 male to ER for evaluation patient has severe shortness of breath and dyspnea. Patient will be admitted for further evaluation and management Admitted Undiagnosed new problem with uncertain prognosis? @ -no Drug Therapy requiring intensive monitoring for toxicity (Heparin, Nitro, Insulin, Cardizem)? @ -no Were any procedures done? @ -no Diagnosis/symptom? @ -Respiratory distress and failure secondary to COPD Acute, or Chronic, or Acute on Chronic? @ -Acute Uncomplicated (without systemic symptoms) or Complicated (systemic symptoms)? @ -Complicated Side effects of treatment? @ -no Exacerbation, Progression, or Severe Exacerbation? @ -exacerbation Poses a threat to life or bodily function? How? (Chest pain, USA, OR, pneumonia, PE, COPD, DKA, ARF, appy, cholecystitis, CVA, Diverticulitis, Homicidal, Suicidal, threat to staff... and all critical care pts) @ -yes significant end-of-life care Reevaluation #5: Differential Dyspnea: Coronary syndrome, arrhythmia, tamponade, asthma, COPD, pulmonary embolism, pneumonia, pneumothorax, pulmonary effusion, anaphylaxis, diabetic ketoacidosis, flailed chest, pulmonary contusion, diaphragmatic rupture, anemia, neuromuscular, this is not meant to be an all-inclusive list. - Consultations Consultation #1: Spoke with Dr. Warren who agrees to admit this patient Medical Decision Making - Medical Decision Making 68 male to ER for evaluation patient has severe shortness of breath and dyspnea. Patient will be admitted for further evaluation and management - Lab Data Result diagrams: 12/25/23 06:59 12/25/23 06:59 Lab Results 12/24/23 12/24/23 12/24/23 Range/Units 18:28 18:28 18:28 WBC 14.4 H (3.8-10.6) k/uL RBC 2.79 L (4.30-5.90) m/uL Hgb 8.7 L D (13.0-17.5) gm/dL Hct 26.9 L (39.0-53.0) % MCV 96.5 (80.0-100.0) fL MCH 31.1 (25.0-35.0) pg MCHC 32.3 (31.0-37.0) g/dL RDW 15.5 (11.5-15.5) % Plt Count 190 (150-450) k/uL MPV 9.2 Neutrophils % 88 % Lymphocytes % 6 % Monocytes % 4 % Eosinophils % 0 % Basophils % 0 % Neutrophils # 12.7 H (1.3-7.7) k/uL Lymphocytes # 0.8 L (1.0-4.8) k/uL Monocytes # 0.6 (0-1.0) k/uL Eosinophils # 0.1 (0-0.7) k/uL Basophils # 0.1 (0-0.2) k/uL Hypochromasia Slight PT 13.1 H (10.0-12.5) sec INR 1.2 H (<1.2) APTT 23.0 (22.0-30.0) sec Sodium 138 (137-145) mmol/L Potassium 5.1 (3.5-5.1) mmol/L Chloride 98 (98-107) mmol/L Carbon Dioxide 34 H (22-30) mmol/L Anion Gap 6 mmol/L BUN 37 H (9-20) mg/dL Creatinine 1.16 (0.66-1.25) mg/dL Est GFR (CKD-EPI)AfAm 74 (>60 ml/min/1.73 sqM) Est GFR (CKD-EPI)NonAf 64 (>60 ml/min/1.73 sqM) Glucose 128 H (74-99) mg/dL Lactic Ac Sepsis Rflx Plasma Lactic Acid Osmar (0.7-2.0) mmol/L Calcium 10.5 H (8.4-10.2) mg/dL Magnesium 2.2 (1.6-2.3) mg/dL Total Bilirubin 0.7 (0.2-1.3) mg/dL AST 181 H (17-59) U/L ALT 33 (4-49) U/L Alkaline Phosphatase 1295 H (38-126) U/L Troponin I (0.000-0.034) ng/mL NT-Pro-B Natriuret Pep 2610 pg/mL Total Protein 5.9 L (6.3-8.2) g/dL Albumin 3.3 L (3.5-5.0) g/dL Influenza Type A (PCR) (Not Detectd) Influenza Type B (PCR) (Not Detectd) RSV (PCR) (Not Detectd) SARS-CoV-2 (PCR) (Not Detectd) 12/24/23 12/24/23 12/24/23 Range/Units 18:28 18:28 18:30 WBC (3.8-10.6) k/uL RBC (4.30-5.90) m/uL Hgb (13.0-17.5) gm/dL Hct (39.0-53.0) % MCV (80.0-100.0) fL MCH (25.0-35.0) pg MCHC (31.0-37.0) g/dL RDW (11.5-15.5) % Plt Count (150-450) k/uL MPV Neutrophils % % Lymphocytes % % Monocytes % % Eosinophils % % Basophils % % Neutrophils # (1.3-7.7) k/uL Lymphocytes # (1.0-4.8) k/uL Monocytes # (0-1.0) k/uL Eosinophils # (0-0.7) k/uL Basophils # (0-0.2) k/uL Hypochromasia PT (10.0-12.5) sec INR (<1.2) APTT (22.0-30.0) sec Sodium (137-145) mmol/L Potassium (3.5-5.1) mmol/L Chloride (98-107) mmol/L Carbon Dioxide (22-30) mmol/L Anion Gap mmol/L BUN (9-20) mg/dL Creatinine (0.66-1.25) mg/dL Est GFR (CKD-EPI)AfAm (>60 ml/min/1.73 sqM) Est GFR (CKD-EPI)NonAf (>60 ml/min/1.73 sqM) Glucose (74-99) mg/dL Lactic Ac Sepsis Rflx Plasma Lactic Acid Osmar 3.6 H* (0.7-2.0) mmol/L Calcium (8.4-10.2) mg/dL Magnesium (1.6-2.3) mg/dL Total Bilirubin (0.2-1.3) mg/dL AST (17-59) U/L ALT (4-49) U/L Alkaline Phosphatase (38-126) U/L Troponin I 0.085 H* (0.000-0.034) ng/mL NT-Pro-B Natriuret Pep pg/mL Total Protein (6.3-8.2) g/dL Albumin (3.5-5.0) g/dL Influenza Type A (PCR) Not Detected (Not Detectd) Influenza Type B (PCR) Not Detected (Not Detectd) RSV (PCR) Not Detected (Not Detectd) SARS-CoV-2 (PCR) Not Detected (Not Detectd) 12/24/23 Range/Units 19:04 WBC (3.8-10.6) k/uL RBC (4.30-5.90) m/uL Hgb (13.0-17.5) gm/dL Hct (39.0-53.0) % MCV (80.0-100.0) fL MCH (25.0-35.0) pg MCHC (31.0-37.0) g/dL RDW (11.5-15.5) % Plt Count (150-450) k/uL MPV Neutrophils % % Lymphocytes % % Monocytes % % Eosinophils % % Basophils % % Neutrophils # (1.3-7.7) k/uL Lymphocytes # (1.0-4.8) k/uL Monocytes # (0-1.0) k/uL Eosinophils # (0-0.7) k/uL Basophils # (0-0.2) k/uL Hypochromasia PT (10.0-12.5) sec INR (<1.2) APTT (22.0-30.0) sec Sodium (137-145) mmol/L Potassium (3.5-5.1) mmol/L Chloride (98-107) mmol/L Carbon Dioxide (22-30) mmol/L Anion Gap mmol/L BUN (9-20) mg/dL Creatinine (0.66-1.25) mg/dL Est GFR (CKD-EPI)AfAm (>60 ml/min/1.73 sqM) Est GFR (CKD-EPI)NonAf (>60 ml/min/1.73 sqM) Glucose (74-99) mg/dL Lactic Ac Sepsis Rflx Y Plasma Lactic Acid Osmar (0.7-2.0) mmol/L Calcium (8.4-10.2) mg/dL Magnesium (1.6-2.3) mg/dL Total Bilirubin (0.2-1.3) mg/dL AST (17-59) U/L ALT (4-49) U/L Alkaline Phosphatase (38-126) U/L Troponin I (0.000-0.034) ng/mL NT-Pro-B Natriuret Pep pg/mL Total Protein (6.3-8.2) g/dL Albumin (3.5-5.0) g/dL Influenza Type A (PCR) (Not Detectd) Influenza Type B (PCR) (Not Detectd) RSV (PCR) (Not Detectd) SARS-CoV-2 (PCR) (Not Detectd) - EKG Data -: EKG Interpreted by Me (EKG is sinus tachycardia 129 TX 137 QRS 90 QTc 356) - Radiology Data Radiology results: report reviewed (Chest x-ray is negative for acute disease), image reviewed Critical Care Time Critical Care Time: Yes Total Critical Care Time: 31 Disposition Clinical Impression: Acute exacerbation of chronic obstructive pulmonary disease Disposition: ADMITTED IP TO THIS HOSP Is patient prescribed a controlled substance at d/c from ED?: No Time of Disposition: 19:35
[2023-12-24] MEDS: HYDROmorphone 0.5 MG/0.5 ML SYRINGE IVP STA (18:25)
[2023-12-24] MEDS: SODIUM CHLORIDE 0.9% 1,000 ML IV STA (18:33)
[2023-12-24] MEDS: LORazepam 2 MG/ML INJ IV STA (18:36)
[2023-12-24] MEDS: IPRATROPIUM 0.5 MG/2.5 ML NEBU INHALATION STA (18:37)
[2023-12-24] MEDS: ALBUTEROL NEBULIZED 2.5 MG/3 ML INHALATION STA (18:37)
[2023-12-24 18:55] LABS: Basophils # (A) 0.1 k/uL (0-0.2); Basophils % (A) 0 %; Eosinophils # (A) 0.1 k/uL (0-0.7); Eosinophils % (A) 0 %; HCT 26.9 % (39.0-53.0); Hypochromasia Slight; Lymphocytes # (A) 0.8 k/uL (1.0-4.8); Lymphocytes % (A) 6 %; MCH 31.1 pg (25.0-35.0); MCHC 32.3 g/dL (31.0-37.0); MCV 96.5 fL (80.0-100.0); Mean Platelet Volume 9.2; Monocytes # (A) 0.6 k/uL (0-1.0); Monocytes % (A) 4 %; Neutrophils # (A) 12.7 k/uL (1.3-7.7); Neutrophils % (A) 88 %; Platelet Count 190 k/uL (150-450); RBC 2.79 m/uL (4.30-5.90); RDW 15.5 % (11.5-15.5); WBC 14.4 k/uL (3.8-10.6)
[2023-12-24 18:57] LABS: HGB 8.7 gm/dL (13.0-17.5)
[2023-12-24 18:58] LABS: ALT 33 U/L (4-49); AST 181 U/L (17-59); African American GFR (CKD) 74 (>60 ml/min/1.73 sqM); Albumin 3.3 g/dL (3.5-5.0); Anion Gap 6 mmol/L; Blood Urea Nitrogen 37 mg/dL (9-20); Calcium 10.5 mg/dL (8.4-10.2); Carbon Dioxide 34 mmol/L (22-30); Chloride 98 mmol/L (98-107); Glucose 128 mg/dL (74-99); INR 1.2 (<1.2); Magnesium 2.2 mg/dL (1.6-2.3); Non-African American GFR(CKD) 64 (>60 ml/min/1.73 sqM); Potassium 5.1 mmol/L (3.5-5.1); Prothrombin Time 13.1 sec (10.0-12.5); Sodium 138 mmol/L (137-145); Total Bilirubin 0.7 mg/dL (0.2-1.3); Total Protein 5.9 g/dL (6.3-8.2)
[2023-12-24] MEDS ORDERED: NALOXONE 0.4 MG/ML 1 ML VIAL IVP PRN (19:04)
[2023-12-24] MEDS ORDERED: NALOXONE 0.4 MG/ML 1 ML VIAL IV PRN (19:04)
[2023-12-24] MEDS ORDERED: ONDANSETRON 4 MG/2 ML VIAL IVP PRN (19:04)
[2023-12-24 19:06] LABS: NT-Pro-B-Type Natriuretic Pept 2610 pg/mL
[2023-12-24 19:22] LABS: Alkaline Phosphatase 1295 U/L (38-126)
[2023-12-24] MEDS: SODIUM CHLORIDE 0.9% 1,000 ML IV SCH (19:42)
--- NOTE | 2023-12-24 20:05 | XR ---
EXAM: XR chest 1V portable CLINICAL INDICATION:Male, 68 years old with history of cp; [facility] COMPARISON: 11/22/2023 chest x-ray, and older exams TECHNIQUE: Chest single view. FINDINGS: Lines/tubes/devices: EKG leads overlie the chest. No indwelling lines are seen. Cardiomediastinum: Cardiac silhouette appears stable, heart is mildly enlarged. Stable mediastinal silhouette. Vasculature: No increased pulmonary vasculature. Lungs/pleura: Lungs appear somewhat hyperinflated with mild chronic coarsening of interstitial markings. Ill-define d focal nodular density over the upper right lung zone, similar to prior studies. No acute infiltrate , effusion, pneumothorax. Bones/soft tissues: Bony thorax appears grossly intact as seen. Mild diffuse degenerative changes. Prominent thoracolumba r scoliosis with hardware in place. IMPRESSION: 1. No acute findings, or significant interval change. 2. Right upper lobe pulmonary nodular density persists. Recommend clinical correlation and appropria te imaging follow-up.
[2023-12-24] MEDS: LORazepam 2 MG/ML INJ IV PRN (21:00)
[2023-12-24] MEDS: ACETAMINOPHEN IV (For NPO) 1,000 MG in EMPTY BAG 1 BAG IVPB ONE (23:16)
[2023-12-24] MEDS: methylPREDNISolone SOD SUCCI 125 MG/2 ML VIAL IV SCH (23:18)
[2023-12-25] MEDS: HYDROmorphone 0.5 MG/0.5 ML SYRINGE IVP PRN (03:48)
[2023-12-25 07:19] LABS: Basophils % (A) 0 %; Eosinophils % (A) 0 %; HCT 25.3 % (39.0-53.0); Hypochromasia Slight; Lymphocytes # (A) 0.5 k/uL (1.0-4.8); Lymphocytes % (A) 4 %; MCH 30.9 pg (25.0-35.0); MCHC 31.5 g/dL (31.0-37.0); Macrocytosis Slight; Mean Platelet Volume 10.1; Monocytes # (A) 0.6 k/uL (0-1.0); Monocytes % (A) 5 %; Neutrophils % (A) 89 %; Platelet Count 150 k/uL (150-450); RBC 2.58 m/uL (4.30-5.90); RDW 15.5 % (11.5-15.5); WBC 12.3 k/uL (3.8-10.6)
[2023-12-25 07:34] VITALS: TEMP 99.5
[2023-12-25 07:40] LABS: Potassium 5.7 mmol/L (3.5-5.1)
[2023-12-25 07:41] LABS: ALT 36 U/L (4-49); AST 185 U/L (17-59); African American GFR (CKD) 83 (>60 ml/min/1.73 sqM); Albumin 3.1 g/dL (3.5-5.0); Anion Gap 3 mmol/L; Blood Urea Nitrogen 45 mg/dL (9-20); Calcium 9.6 mg/dL (8.4-10.2); Carbon Dioxide 34 mmol/L (22-30); Chloride 104 mmol/L (98-107); Glucose 105 mg/dL (74-99); Magnesium 2.3 mg/dL (1.6-2.3); Non-African American GFR(CKD) 72 (>60 ml/min/1.73 sqM); Phosphorus 5.1 mg/dL (2.5-4.5); Sodium 141 mmol/L (137-145); Total Bilirubin 0.6 mg/dL (0.2-1.3); Total Protein 5.5 g/dL (6.3-8.2)
[2023-12-25 07:45] LABS: Alkaline Phosphatase 1334 U/L (38-126)
[2023-12-25 09:33] VITALS: BP 115/84; PULSE 92; RESP 22; BMI 18.0
--- NOTE | 2023-12-25 19:38 | P.HPIM ---
History of Present Illness H&P Date: 12/25/23 Chief Complaint: Short of breath This is a 68-year-old patient, follows with Dr. Randall. History is obtained by the at the bedside. Has a known history of metastatic colon cancer. With spread to the lungs, the back. Is being followed by Dr. Matthew Ma. Patient had received radiation treatment in the past. Progressively getting worse. Presented with weight loss decreased appetite doing poorly. No pain. With very short of breath. Patient had already had a consultation with his oncologist regarding possible hospice. Comfort measures were initiated yesterday evening. After his talk to the on the phone. Patient though able to converse at home. This morning patient is on a BiPAP. at the bedside. 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 No alcohol. Physical examination: VITAL SIGNS: 97.5, 135, 34, 110 x 67, 96% on BiPAP upon presentation GENERAL: BMI 18.1, loss of subcutaneous fat and muscle. On BiPAP tired. EYES: Pupils equal. Conjunctiva madai l. HEENT: External appearance of nose and ears normal, oral cavity grossly normal. NECK: JVD not raised; masses not palpable. HEART: First and second heart sounds are normal; no edema. LUNGS:[ Respiratory rate increased, poor air entry. ABDOMEN: Soft, nontender, liver spleen not palpable, no masses palpable. PSYCH: Patient somewhat lethargic l. MUSCULOSKELETAL:No Clubbing/cyanosis;muscles-grossly intact. Loss of muscle mass NEUROLOGICAL: Cranial nerves grossly intact; no facial asymmetry, power and sensation grossly intact. LYMPHATICS: No lymph nodes palpable in the axilla and neck INVESTIGATIONS, reviewed in the clinical context: December 25: White count 12.3 hemoglobin 8 platelets 150 potassium 5.7 BUN 45 creatinine 1.05 Lactic acid 3 point 6 repeat 2.0 phosphorus 5.1 alkaline phosphatase 1334 albumin 3.1 Troponin I 0.085 Influenza type A, B, RSV, COVID-19: Not detected EKG tracing personally reviewed by me-sinus tachycardia. Possibly P pulmonale. Chest x-ray film personally reviewed by me-some hyperinflation. Lung density. Assessment and plan: -Metastatic colon cancer with spread to the lungs the bones. Patient is being followed by Dr. Hill however from oncology. Did receive some radiation. Now in a poor functional status -Advanced COPD and a current smoker Patient was given bronchodilators. BiPAP. -Acute hypoxic respiratory failure type I and II from COPD exacerbation Requiring BiPAP -Normocytic anemia of malignancy -Type II lactic acidosis from poor oral intake -Severe protein calorie malnutrition from poor oral intake -Troponin leak from hemodynamic mismatch. Spoke to the at the bedside. She understands patient doing poorly. She is already spoken to oncology. She is mentally prepared for hospice. Comfort measures have been initiated. Hospice to be consulted. Also discussed with on cology Dr. Woodward. Advance care planning: Patient's discussed that she understands patient's guarded prognosis. Agreeable to comfort measures and hospice care. [facility] hospice is being consulted. BiPAP for comfort. [About 25 minutes was spent for this] Past Medical History Past Medical History: Cancer, COPD, Prostate Disorder Additional Past Medical History / Comment(s): colon cancer, lung cancer History of Any Multi-Drug Resistant Organisms: None Reported Past Surgical History: Back Surgery Additional Past Surgical History / Comment(s): Back surgery for Scoliosis, kandy in back. Past Anesthesia/Blood Transfusion Reactions: No Reported Reaction Past Psychological History: No Psychological Hx Reported Smoking Status: Current every day smoker Past Alcohol Use History: None Reported Past Drug Use History: None Reported - Past Family History Father Family Medical History: Cancer Medications and Allergies Home Medications Medication Instructions Recorded Confirmed Type Budesonide-Formot 160-4.5 Mcg 1 - 2 puff INHALATION RT-QID 11/04/21 12/25/23 History [Symbicort 160-4.5 Mcg Inhaler] Ipratropium/Albuter 20-100Mcg 1 puff INHALATION RT-QID 11/04/21 12/25/23 History [Combivent Respimat 20-100Mcg Inhaler] Albuterol Inhaler [Ventolin Hfa 1 - 2 puff INHALATION RT-Q6H PRN 12/24/23 12/25/23 History Inhaler] Albuterol Nebulized [Ventolin 2.5 mg INHALATION RT-QID 12/24/23 12/25/23 History Nebulized] Cholecalciferol [Vitamin D3 (25 50 mcg PO DAILY 12/24/23 12/25/23 History Mcg = 1000 Iu)] Dm/Acetaminophen/Doxylamine [Vicks 30 ml PO HS 12/24/23 12/25/23 History Nyquil Cold-Flu Liquid] Levofloxacin [Levaquin] 500 mg PO DAILY 12/24/23 12/25/23 History Methyl Salicylate/Menth/Camph 1 patch TOPICAL DAILY PRN 12/24/23 12/25/23 History [Salonpas 3.1%-6.0%-10.0% Patch] Mv-Min/Folic/K1/Lycopen/Lutein 1 tab PO DAILY 12/24/23 12/25/23 History [Centrum Silver Men Tablet] Nicotine 14Mg/24Hr Patch [Habitrol 1 patch TRANSDERM DAILY 12/24/23 12/25/23 History 14Mg/24Hr Patch] Sodium Chloride [[place]] 1 spray EA NOSTRIL QID PRN 12/24/23 12/25/23 History predniSONE 5 mg PO DAILY 12/24/23 12/25/23 History traMADol HCL 50 mg PO Q6H PRN 12/24/23 12/25/23 History Allergies Allergy/AdvReac Type Severity Reaction Status Date / Time No Known Allergies Allergy Verified 12/24/23 19:30 Physical Exam Vitals: Vital Signs Temp Pulse Resp BP Pulse Ox FiO2 12/25/23 09:05 92 22 115/84 93 L 12/25/23 07:59 40 12/25/23 07:27 99.5 F 118 H 30 H 96 12/25/23 06:00 101 H 19 109/85 98 12/25/23 05:00 92 107/74 96 12/25/23 04:19 40 12/25/23 04:00 100 16 120/78 98 12/25/23 03:45 98.5 F 130 H 28 H 120/78 98 12/25/23 03:00 123 H 119/72 95 12/25/23 02:00 95 137/82 98 12/25/23 01:09 40 12/25/23 01:00 100 100/63 97 12/25/23 00:46 98.5 F 12/25/23 00:07 96 100/63 99 12/25/23 00:05 97 14 137/77 99 12/24/23 22:24 101.9 F H 113 H 16 130/64 12/24/23 22:00 117 H 26 H 135/77 98 12/24/23 21:14 40 12/24/23 21:00 112 H 14 124/83 97 12/24/23 20:00 112 H 25 H 104/69 99 12/24/23 19:44 112 H 21 109/69 99 12/24/23 19:09 118 H 12/24/23 18:54 50 12/24/23 18:51 118 H 12/24/23 18:50 118 H 12/24/23 18:49 70 12/24/23 18:38 114 H 12/24/23 18:25 100 12/24/23 18:23 122 H 30 H 98/67 12/24/23 18:18 97.5 F L 135 H 34 H 110/67 96 Intake and Output 12/24/23 12/25/23 12/25/23 22:59 06:59 14:59 Other: Weight 46.266 kg 46.266 kg Results CBC & Chem 7: 12/25/23 06:59 12/25/23 06:59 Labs: Abnormal Lab Results - Last 24 Hours (Table) 12/24/23 12/24/23 12/24/23 Range/Units 18:28 18:28 18:28 WBC 14.4 H (3.8-10.6) k/uL RBC 2.79 L (4.30-5.90) m/uL Hgb 8.7 L D (13.0-17.5) gm/dL Hct 26.9 L (39.0-53.0) % Neutrophils # 12.7 H (1.3-7.7) k/uL Lymphocytes # 0.8 L (1.0-4.8) k/uL PT 13.1 H (10.0-12.5) sec INR 1.2 H (<1.2) Potassium (3.5-5.1) mmol/L Carbon Dioxide 34 H (22-30) mmol/L BUN 37 H (9-20) mg/dL Glucose 128 H (74-99) mg/dL Plasma Lactic Acid Osmar (0.7-2.0) mmol/L Calcium 10.5 H (8.4-10.2) mg/dL Phosphorus (2.5-4.5) mg/dL AST 181 H (17-59) U/L Alkaline Phosphatase 1295 H (38-126) U/L Troponin I (0.000-0.034) ng/mL Total Protein 5.9 L (6.3-8.2) g/dL Albumin 3.3 L (3.5-5.0) g/dL 12/24/23 12/24/23 12/25/23 Range/Units 18:28 18:28 06:59 WBC 12.3 H (3.8-10.6) k/uL RBC 2.58 L (4.30-5.90) m/uL Hgb 8.0 L (13.0-17.5) gm/dL Hct 25.3 L (39.0-53.0) % Neutrophils # 11.0 H (1.3-7.7) k/uL Lymphocytes # 0.5 L (1.0-4.8) k/uL PT (10.0-12.5) sec INR (<1.2) Potassium (3.5-5.1) mmol/L Carbon Dioxide (22-30) mmol/L BUN (9-20) mg/dL Glucose (74-99) mg/dL Plasma Lactic Acid Osmar 3.6 H* (0.7-2.0) mmol/L Calcium (8.4-10.2) mg/dL Phosphorus (2.5-4.5) mg/dL AST (17-59) U/L Alkaline Phosphatase (38-126) U/L Troponin I 0.085 H* (0.000-0.034) ng/mL Total Protein (6.3-8.2) g/dL Albumin (3.5-5.0) g/dL 12/25/23 Range/Units 06:59 WBC (3.8-10.6) k/uL RBC (4.30-5.90) m/uL Hgb (13.0-17.5) gm/dL Hct (39.0-53.0) % Neutrophils # (1.3-7.7) k/uL Lymphocytes # (1.0-4.8) k/uL PT (10.0-12.5) sec INR (<1.2) Potassium 5.7 H (3.5-5.1) mmol/L Carbon Dioxide 34 H (22-30) mmol/L BUN 45 H (9-20) mg/dL Glucose 105 H (74-99) mg/dL Plasma Lactic Acid Osmar (0.7-2.0) mmol/L Calcium (8.4-10.2) mg/dL Phosphorus 5.1 H (2.5-4.5) mg/dL AST 185 H (17-59) U/L Alkaline Phosphatase 1334 H (38-126) U/L Troponin I (0.000-0.034) ng/mL Total Protein 5.5 L (6.3-8.2) g/dL Albumin 3.1 L (3.5-5.0) g/dL
--- NOTE | 2023-12-25 19:40 | P.DS ---
Providers Date of admission: 12/24/23 19:05 Expected date of discharge: 12/25/23 Attending physician: Rudy Warren Consults: 12/24/23 19:04 Consult Physician Routine Consulting Provider: Medhat Winter Consult Reason/Comments: copd Do you want consulting provider notified?: Yes 12/24/23 19:41 Consult Physician Routine Consulting Provider: Rashmi Ma Consult Reason/Comments: known Do you want consulting provider notified?: Yes Primary care physician: Omi [facility] Course: Chief Complaint: Short of breath This is a 68-year-old patient, follows with Dr. Randall. History is obtained by the at the bedside. Has a known history of metastatic colon cancer. With spread to the lungs, the back. Is being followed by Dr. Matthew Ma. Patient had received radiation treatment in the past. Progressively getting worse. Presented with weight loss decreased appetite doing poorly. No pain. With very short of breath. Patient had already had a consultation with his oncologist regarding possible hospice. Comfort measures were initiated yesterday evening. After his talk to the on the phone. Patient though able to converse at home. This morning patient is on a BiPAP. at the bedside. is agreeable to proceed with hospice. Hospice consulted. Patient be mated to GIP for his respiratory advance symptoms . Social history: Patient used to be a food service worker. . Smoking a pack a day for 50 years. No alcohol. Physical examination: VITAL SIGNS: 97.5, 135, 34, 110 x 67, 96% on BiPAP upon presentation GENERAL: BMI 18.1, loss of subcutaneous fat and muscle. On BiPAP tired. EYES: Pupils equal. Conjunctiva madai l. HEENT: External appearance of nose and ears normal, oral cavity grossly normal. NECK: JVD not raised; masses not palpable. HEART: First and second heart sounds are normal; no edema. LUNGS:[ Respiratory rate increased, poor air entry. ABDOMEN: Soft, nontender, liver spleen not palpable, no masses palpable. PSYCH: Patient somewhat lethargic l. MUSCULOSKELETAL:No Clubbing/cyanosis;muscles-grossly intact. Loss of muscle mass NEUROLOGICAL: Cranial nerves grossly intact; no facial asymmetry, power and sensation grossly intact. LYMPHATICS: No lymph nodes palpable in the axilla and neck INVESTIGATIONS, reviewed in the clinical context: December 25: White count 12.3 hemoglobin 8 platelets 150 potassium 5.7 BUN 45 creatinine 1.05 Lactic acid 3 point 6 repeat 2.0 phosphorus 5.1 alkaline phosphatase 1334 albumin 3.1 Troponin I 0.085 Influenza type A, B, RSV, COVID-19: Not detected EKG tracing personally reviewed by me-sinus tachycardia. Possibly P pulmonale. Chest x-ray film personally reviewed by me-some hyperinflation. Lung density. Assessment and plan: -Metastatic colon cancer with spread to the lungs the bones. Patient is being followed by Dr. Hill however from oncology. Did receive some radiation. Now in a poor functional status -Advanced COPD and a current smoker Patient was given bronchodilators. BiPAP. -Acute hypoxic respiratory failure type I and II from COPD exacerbation Requiring BiPAP -Normocytic anemia of malignancy -Type II lactic acidosis from poor oral intake -Severe protein calorie malnutrition from poor oral intake -Troponin leak from hemodynamic mismatch. Spoke to the at the bedside. She understands patient doing poorly. She is already spoken to oncology. She is mentally prepared for hospice. Comfort measures have been initiated. Hospice to be consulted. Also discussed with oncology Dr. Woodward. Advance care planning: Patient's discussed that she understands patient's guarded prognosis. Agreeable to comfort measures and hospice care. [facility] hospice is being consulted. BiPAP for comfort. [About 25 minutes was spent for this] Disposition: Inpatient GIP/hospice Plan - Discharge Summary New Discharge Prescriptions: No Action Budesonide-Formot 160-4.5 Mcg [Symbicort 160-4.5 Mcg Inhaler] 1 - 2 puff INHALATION RT-QID Ipratropium/Albuter 20-100Mcg [Combivent Respimat 20-100Mcg Inhaler] 1 puff INHALATION RT-QID Levofloxacin [Levaquin] 500 mg PO DAILY Methyl Salicylate/Menth/Camph [Salonpas 3.1%-6.0%-10.0% Patch] 1 patch TOPICAL DAILY PRN PRN Reason: Pain Mv-Min/Folic/K1/Lycopen/Lutein [Centrum Silver Men Tablet] 1 tab PO DAILY traMADol HCL 50 mg PO Q6H PRN PRN Reason: Pain predniSONE 5 mg PO DAILY Nicotine 14Mg/24Hr Patch [Habitrol 14Mg/24Hr Patch] 1 patch TRANSDERM DAILY Sodium Chloride [[place]] 1 spray EA NOSTRIL QID PRN PRN Reason: DRY NOSE Cholecalciferol [Vitamin D3 (25 Mcg = 1000 Iu)] 50 mcg PO DAILY Dm/Acetaminophen/Doxylamine [Vicks Nyquil Cold-Flu Liquid] 30 ml PO HS Albuterol Nebulized [Ventolin Nebulized] 2.5 mg INHALATION RT-QID Albuterol Inhaler [Ventolin Hfa Inhaler] 1 - 2 puff INHALATION RT-Q6H PRN PRN Reason: Shortness Of Breath Discharge Medication List Budesonide-Formot 160-4.5 Mcg [Symbicort 160-4.5 Mcg Inhaler] 1 - 2 puff INHALATION RT-QID 11/04/21 [History] Ipratropium/Albuter 20-100Mcg [Combivent Respimat 20-100Mcg Inhaler] 1 puff INHALATION RT-QID 11/04/21 [History] Albuterol Inhaler [Ventolin Hfa Inhaler] 1 - 2 puff INHALATION RT-Q6H PRN 12/24/23 [History] Albuterol Nebulized [Ventolin Nebulized] 2.5 mg INHALATION RT-QID 12/24/23 [History] Cholecalciferol [Vitamin D3 (25 Mcg = 1000 Iu)] 50 mcg PO DAILY 12/24/23 [History] Dm/Acetaminophen/Doxylamine [Vicks Nyquil Cold-Flu Liquid] 30 ml PO HS 12/24/23 [History] Levofloxacin [Levaquin] 500 mg PO DAILY 12/24/23 [History] Methyl Salicylate/Menth/Camph [Salonpas 3.1%-6.0%-10.0% Patch] 1 patch TOPICAL DAILY PRN 12/24/23 [History] Mv-Min/Folic/K1/Lycopen/Lutein [Centrum Silver Men Tablet] 1 tab PO DAILY 12/24/23 [History] Nicotine 14Mg/24Hr Patch [Habitrol 14Mg/24Hr Patch] 1 patch TRANSDERM DAILY 12/24/23 [History] Sodium Chloride [[place]] 1 spray EA NOSTRIL QID PRN 12/24/23 [History] predniSONE 5 mg PO DAILY 12/24/23 [History] traMADol HCL 50 mg PO Q6H PRN 12/24/23 [History] Follow up Appointment(s)/Referral(s): Omi Randall DO [Primary Care Provider] - 1-2 days Discharge Disposition: DC/TRNS IP HOSP W/PLND IP READ
--- NOTE | 2023-12-25 21:01 | P.CONS ---
History of Present Illness - Reason for Consult Consult date: 12/25/23 Hospice appropriateness Requesting physician: Rudy Warren - Chief Complaint AMS, weakness, SOB - History of Present Illness Mr. Murphy is a 68-year-old gentleman with a PMH significant for COPD and scoliosis who we have seen for diagnosis of colon adenocarcinoma. He had SBO which required hospitalization in November 2022 and was treated conservatively. He reported constipation along with weight loss at that time, no other associated symptoms reported. He had another SBO in June 2023 requiring NG tube placement. CT AP with oral contrast 07/01/2023 showed wall thickening at the terminal ileum. He had outpatient colonoscopy performed on 08/07/2023 due to concern for Crohn's disease, which noted apple core lesion with significant luminal narrowing near the terminal ileum at the ascending colon. Rest of colonoscopy revealed no abnormalities. Biopsy of lesion, path positive for poorly differentiated adenocarcinoma positive for CK20 and CDX2. He underwent robotic right hemicolectomy, that was converted to an open colectomy on 09/05/2023. Postoperative pathology revealed poorly differentiated adenocarcinoma extending through the small bowel wall into the mucosa with angiolymphatic invasion. Margins were negative with 14 of 16 lymph nodes being positive for metastatic carcinoma, staged pT4b pN2. Staging PET/CT 09/20/2023 noted FDG avid lesions in the base of the skull, T2 vertebral body, sacrum, and left seventh rib. There was a 3 x 2 cm FDG avid mass in the right upper lung along with left upper lung groundglass opacity measuring 1.3 cm and right lower lobe 5 mm pulmonary nodule that were mildly FDG avid, below the liver mean SUV. In the abdomen, there was lymphadenopathy in the lower thorax and conglomerate lymphadenopathy at the level of the right kidney that was FDG avid. NGS from the surgical pathology revealed T P53 as well as PIK3CA mutation with low tumor mutation burden and SHAMIR disease. PD-L1 was less than 1%. [id number] noted PIK3CA, TP53, and BRAF mutation. In an attempt to obtain bone biopsy to confirm metastatic disease, MRI of the cervical spine was performed on 10/30/2023. This noted expansion of the T2 vertebral body with mild anterior spinal cord compression. This was discussed with Mr. Murphy with recommendation for hospitalization, systemic steroids, and surgical/radiation oncology evaluations. He was amenable to radiation oncology, but did not want to be admitted or receive systemic steroids. He did establish with radiation oncology and received 5 fractions of radiation therapy, which she completed on 11/08/2023. He was seen for chemo teach on 11/28 but, not felt to be in good enough shape to start. He had 2 more f/u in Nov and below is the 2 f/u appts in Dec. 12/14/23-Pt here today for acute visit. He was supposed to have chemo last Mon but it was held because of hematuria, he was sent to ER and was started on antibiotics, he is still on at this time. The urine he brought from home is grossly bloody with clots, he is having hematuria at least once a day (he will urinate and the color will be normal). He is weak, not getting out of bed. Foggy, hard to understand and mild confusion ( reporting going on for a few weeks). Hgb down to 9.9 from 12.1 when drawn on 12/05. Pt cannot walk 10-15 ft without support, he is SOB with any activity, he is having difficulty getting in and out of MD appts, using w/c on premises. 12/21/23-Pt here with to be assessed for possible start of chemo for met colorectal adenocarcinoma. Pt is not improving much. He is weak. It is taking a lot of energy to get to appts. He needs wheelchair assistance at home and to get into and out of doctor appointments. When asked if he wants to start treatment he states "NO". He wants an antibiotic for his congested cough and sinus drainage. He states he will eat more fruits and vegetables and try to gain some wt before his next visit and then think about doing treatment then. Reviewed with pt and that it is going to be highly unlikely that he is going to be able to gain wt and strong enough to do cancer treatment. Also, if pt does do treatment, it is highly likely that treatment will weaken him which will make him even more susceptible to infections, that would likely be fatal, in his condition. His current PS is 3. Pt told me that his lungs were likely "going to be the of me". Patient was at home getting progressively weaker, he fell twice. Unfortunately, was not able to manage him at home anymore so he was finally convinced by friends to come to the hospital. They could not get him to the car so the EMS had to pick him up. Patient is currently laying in the ER on BiPAP, no meaningful response to questions or exam. Review of Systems LATRELL-pt on bipap, not responding to verbal cues Past Medical History Past Medical History: Cancer, COPD, Prostate Disorder Additional Past Medical History / Comment(s): colon cancer, lung cancer History of Any Multi-Drug Resistant Organisms: None Reported Past Surgical History: Back Surgery Additional Past Surgical History / Comment(s): Back surgery for Scoliosis, kandy in back. Past Anesthesia/Blood Transfusion Reactions: No Reported Reaction Past Psychological History: No Psychological Hx Reported Smoking Status: Current every day smoker Past Alcohol Use History: None Reported Past Drug Use History: None Reported - Past Family History Father Family Medical History: Cancer Medications and Allergies Home Medications Medication Instructions Recorded Confirmed Type Budesonide-Formot 160-4.5 Mcg 1 - 2 puff INHALATION RT-QID 11/04/21 12/25/23 History [Symbicort 160-4.5 Mcg Inhaler] Ipratropium/Albuter 20-100Mcg 1 puff INHALATION RT-QID 11/04/21 12/25/23 History [Combivent Respimat 20-100Mcg Inhaler] Albuterol Inhaler [Ventolin Hfa 1 - 2 puff INHALATION RT-Q6H PRN 12/24/23 12/25/23 History Inhaler] Albuterol Nebulized [Ventolin 2.5 mg INHALATION RT-QID 12/24/23 12/25/23 History Nebulized] Cholecalciferol [Vitamin D3 (25 50 mcg PO DAILY 12/24/23 12/25/23 History Mcg = 1000 Iu)] Dm/Acetaminophen/Doxylamine [Vicks 30 ml PO HS 12/24/23 12/25/23 History Nyquil Cold-Flu Liquid] Levofloxacin [Levaquin] 500 mg PO DAILY 12/24/23 12/25/23 History Methyl Salicylate/Menth/Camph 1 patch TOPICAL DAILY PRN 12/24/23 12/25/23 History [Salonpas 3.1%-6.0%-10.0% Patch] Mv-Min/Folic/K1/Lycopen/Lutein 1 tab PO DAILY 12/24/23 12/25/23 History [Centrum Silver Men Tablet] Nicotine 14Mg/24Hr Patch [Habitrol 1 patch TRANSDERM DAILY 12/24/23 12/25/23 History 14Mg/24Hr Patch] Sodium Chloride [[place]] 1 spray EA NOSTRIL QID PRN 12/24/23 12/25/23 History predniSONE 5 mg PO DAILY 12/24/23 12/25/23 History traMADol HCL 50 mg PO Q6H PRN 12/24/23 12/25/23 History Allergies Allergy/AdvReac Type Severity Reaction Status Date / Time No Known Allergies Allergy Verified 12/24/23 19:30 Physical Exam Vitals: Vital Signs Temp Pulse Resp BP Pulse Ox FiO2 12/25/23 07:59 40 12/25/23 07:27 99.5 F 118 H 30 H 96 12/25/23 06:00 101 H 19 109/85 98 12/25/23 05:00 92 107/74 96 12/25/23 04:19 40 12/25/23 04:00 100 16 120/78 98 12/25/23 03:45 98.5 F 130 H 28 H 120/78 98 12/25/23 03:00 123 H 119/72 95 12/25/23 02:00 95 137/82 98 12/25/23 01:09 40 12/25/23 01:00 100 100/63 97 12/25/23 00:46 98.5 F 12/25/23 00:07 96 100/63 99 12/25/23 00:05 97 14 137/77 99 12/24/23 22:24 101.9 F H 113 H 16 130/64 12/24/23 22:00 117 H 26 H 135/77 98 12/24/23 21:14 40 12/24/23 21:00 112 H 14 124/83 97 12/24/23 20:00 112 H 25 H 104/69 99 12/24/23 19:44 112 H 21 109/69 99 12/24/23 19:09 118 H 12/24/23 18:54 50 12/24/23 18:51 118 H 12/24/23 18:50 118 H 12/24/23 18:49 70 12/24/23 18:38 114 H 12/24/23 18:25 100 12/24/23 18:23 122 H 30 H 98/67 12/24/23 18:18 97.5 F L 135 H 34 H 110/67 96 Intake and Output 12/24/23 12/25/23 12/25/23 22:59 06:59 14:59 Other: Weight 46.266 kg - Constitutional General appearance: severe distress, thin - Neck Neck: no lymphadenopathy - Respiratory intercostal retractions, barrel chest with little movement - Cardiovascular Heart sounds: normal: S1, S2 leg Peripheral Edema: bilateral: None - Gastrointestinal General gastrointestinal: no absent bowel sounds, no decreased bowel sounds, no distended, no hepatomegaly, no hyperactive bowel sounds, normal bowel sounds, no organomegaly, no rigid, scaphoid, soft, no splenomegaly, no tenderness, no umbilical hernia, no ventral hernia - Musculoskeletal Musculoskeletal: generalized weakness - Psychiatric Psychiatric: no A&O x's 3, no appropriate affect, no intact judgment & insight Results CBC & Chem 7: 12/25/23 06:59 12/25/23 06:59 Labs: Abnormal Lab Results - Last 24 Hours (Table) 12/24/23 12/24/23 12/24/23 Range/Units 18:28 18:28 18:28 WBC 14.4 H (3.8-10.6) k/uL RBC 2.79 L (4.30-5.90) m/uL Hgb 8.7 L D (13.0-17.5) gm/dL Hct 26.9 L (39.0-53.0) % Neutrophils # 12.7 H (1.3-7.7) k/uL Lymphocytes # 0.8 L (1.0-4.8) k/uL PT 13.1 H (10.0-12.5) sec INR 1.2 H (<1.2) Potassium (3.5-5.1) mmol/L Carbon Dioxide 34 H (22-30) mmol/L BUN 37 H (9-20) mg/dL Glucose 128 H (74-99) mg/dL Plasma Lactic Acid Osmar (0.7-2.0) mmol/L Calcium 10.5 H (8.4-10.2) mg/dL Phosphorus (2.5-4.5) mg/dL AST 181 H (17-59) U/L Alkaline Phosphatase 1295 H (38-126) U/L Troponin I (0.000-0.034) ng/mL Total Protein 5.9 L (6.3-8.2) g/dL Albumin 3.3 L (3.5-5.0) g/dL 12/24/23 12/24/23 12/25/23 Range/Units 18:28 18:28 06:59 WBC 12.3 H (3.8-10.6) k/uL RBC 2.58 L (4.30-5.90) m/uL Hgb 8.0 L (13.0-17.5) gm/dL Hct 25.3 L (39.0-53.0) % Neutrophils # 11.0 H (1.3-7.7) k/uL Lymphocytes # 0.5 L (1.0-4.8) k/uL PT (10.0-12.5) sec INR (<1.2) Potassium (3.5-5.1) mmol/L Carbon Dioxide (22-30) mmol/L BUN (9-20) mg/dL Glucose (74-99) mg/dL Plasma Lactic Acid Osmar 3.6 H* (0.7-2.0) mmol/L Calcium (8.4-10.2) mg/dL Phosphorus (2.5-4.5) mg/dL AST (17-59) U/L Alkaline Phosphatase (38-126) U/L Troponin I 0.085 H* (0.000-0.034) ng/mL Total Protein (6.3-8.2) g/dL Albumin (3.5-5.0) g/dL 12/25/23 Range/Units 06:59 WBC (3.8-10.6) k/uL RBC (4.30-5.90) m/uL Hgb (13.0-17.5) gm/dL Hct (39.0-53.0) % Neutrophils # (1.3-7.7) k/uL Lymphocytes # (1.0-4.8) k/uL PT (10.0-12.5) sec INR (<1.2) Potassium 5.7 H (3.5-5.1) mmol/L Carbon Dioxide 34 H (22-30) mmol/L BUN 45 H (9-20) mg/dL Glucose 105 H (74-99) mg/dL Plasma Lactic Acid Osmar (0.7-2.0) mmol/L Calcium (8.4-10.2) mg/dL Phosphorus 5.1 H (2.5-4.5) mg/dL AST 185 H (17-59) U/L Alkaline Phosphatase 1334 H (38-126) U/L Troponin I (0.000-0.034) ng/mL Total Protein 5.5 L (6.3-8.2) g/dL Albumin 3.1 L (3.5-5.0) g/dL Chest x-ray: report reviewed Assessment and Plan (1) End stage chronic obstructive pulmonary disease Status: Chronic Priority: High Code(s): J44.9 - CHRONIC OBSTRUCTIVE PULMONAR Y DISEASE, UNSPECIFIED SNOMED Code(s): 109756440 (2) Colon adenocarcinoma Status: Acute Priority: Medium Code(s): C18.9 - MALIGNANT NEOPLASM OF COLON, UNSPECIFIED SNOMED Code(s): 531953762 Plan: End stage COPD -Pt resp status has continued to decline. Currently he is requiring BiPAP. He is still restless. He has notable intercostal retractions with respirations. As respirations are very shallow, he has a barrel chest with little to no diaphragmatic movement. Colon adenocarcinoma -Recent diagnosis -Pt has never received treatment, never been in good enough shape to do so. Case discussed with . All of her questions and concerns were addressed. Case discussed with Internal Medicine. Patient is a reasonable candidate for hospice care. Doctor attests: I performed a history and physical examination of this patient, developed impression and plan of care. Discussed with dictator. I agree with dictators note, documented as a scribe. Time with Patient: Greater than 30
== END 2023-12-25 10:41 | disposition hospice, inpatient (51) | DRG 374 ==
LOC: EC 18:15 → 3SCARD 19:05 → 5NMEDONC 12-25 10:29
PROVIDERS: ADMIT Hospitalist; ATTEND Hospitalist
PROC: 5A09357 Assistance with Respiratory Ventilation, Less than 24 Consecutive Hours, Continuous Positive Airway Pressure (ICD-10-PCS; principal; 2023-12-24)
DX: C18.9 Malignant neoplasm of colon, unspecified (principal); E43 Unspecified severe protein-calorie malnutrition; J96.01 Acute respiratory failure with hypoxia; C78.02 Secondary malignant neoplasm of left lung; C78.01 Secondary malignant neoplasm of right lung; C79.51 Secondary malignant neoplasm of bone; E87.20 Acidosis, unspecified; Z68.1 Body mass index [BMI] 19.9 or less, adult; G95.20 Unspecified cord compression; J44.1 Chronic obstructive pulmonary disease with (acute) exacerbation; K56.609 Unspecified intestinal obstruction, unspecified as to partial versus complete obstruction; R79.89 Other specified abnormal findings of blood chemistry; Z11.52 Encounter for screening for COVID-19; D63.0 Anemia in neoplastic disease; M41.9 Scoliosis, unspecified; Z51.5 Encounter for palliative care; Z85.038 Personal history of other malignant neoplasm of large intestine; Z79.51 Long term (current) use of inhaled steroids
CPT/HCPCS: 36415; 71045; 80053; 83605; 83735; 83880; 84100; 84484; 85025; 85610; 85730; 87636; 93005; 94640; 94660; 96361; 96374; 96375; 96376; 99291

== ENCOUNTER 2023-12-25 10:41 | Inpatient (IN) | payer MEDICAID, MEDICARE ==
[2023-12-25] MEDS ORDERED: GLYCOPYRROLATE 0.2 MG/ML 2 ML VIAL IVP PRN (10:48)
[2023-12-25] MEDS ORDERED: ARTIFICIAL TEARS-HYPROMELLOSE DROPS 15 ML BTL BOTH EYES PRN (10:48)
[2023-12-25] MEDS ORDERED: ONDANSETRON 4 MG/2 ML VIAL IVP PRN (10:48)
[2023-12-25] MEDS ORDERED: DRY MOUTH SPRAY 44.3 SPRAY/44.3 ML SPRAY MUCOUS MEM PRN (10:48)
[2023-12-25] MEDS ORDERED: ATROPINE OPHTH SOLN 1% 5ML BTL SUBLINGUAL PRN (10:48)
[2023-12-25] MEDS ORDERED: ACETAMINOPHEN SUPPOSITORY 650 MG SUPP RECTAL PRN (10:48)
[2023-12-25] MEDS: SCOPOLAMINE 1 MG/72 HR PATCH TRANSDERM SCH (11:31)
[2023-12-25] MEDS: LORazepam 2 MG/ML INJ IV PRN (11:34)
[2023-12-25] MEDS: MORPHINE SULFATE (100 MG/2 ML) 100 MG in SODIUM CHLORIDE 0.9% 100 ML IV SCH (11:57)
[2023-12-25] MEDS: MORPHINE SULFATE 4 MG/ML SYRINGE IV PRN (12:07)
[2023-12-25 15:05] VITALS: BP 80/40; PULSE 92; RESP 12
--- NOTE | 2023-12-25 15:25 | P.CNPUL ---
History of Present Illness Consult date: 12/25/23 Requesting physician: Rudy Warren Reason for consult: dyspnea, hypoxemia Chief complaint: Shortness of breath, agitation History of present illness: This is a 68-year-old male patient with a known history of chronic and ongoing tobacco dependence, chronic obstructive pulmonary disease, metastatic colon cancer. He has been declining recently and was not intolerant to any treatment. He had been at home with his and was having increasing shortness of breath and falling due to progressive weakness. They had called 911 initially and the patient was still lucid and refused to come in. He continued to remain quite short of breath and agitated and 911 was called again and he was convinced to come to the emergency room. He is currently on BiPAP 14/7 and 40% FiO2. Chest x-ray revealed no acute findings. He is noted to have a right upper lobe pulmonary nodular density. White count 12.3. Hemoglobin 8.0. Platelets 150. Sodium 141. Potassium 5.7. Bicarb 34. BUN 45. Creatinine 1.05. AST 185. ALT 36. Troponin 0.085. He is seen today in consultation in the emergency department. His is at the bedside. He is quite weak and debilitated. He is requiring Ativan for his agitation. He remains on BiPAP. He has lost continued weight. Weighing 18 kg/m. He has been made a DNR/DNI CODE STATUS. Review of Systems REVIEW OF SYSTEMS: CONSTITUTIONAL: Positive for agitation and restlessness. Positive for recent significant weight loss. EYES: Denies change in vision. EARS, NOSE, MOUTH, THROAT: Denies headaches, denies sore throat. CARDIOVASCULAR: Denies chest pain, palpitations or syncopal episodes. RESPIRATORY: Positive for shortness of breath, cough, congestion no hemoptysis. GASTROINTESTINAL: Denies change in appetite, denies abdominal pain GENITOURINARY: Denies hematuria, denies infections. MUSKULOSKELETAL: Denies pain, denies swelling. INTEGUMENTARY: Denies rash, denies eczema. NEUROLOGICAL: Denies recent memory loss, no recent seizure activity. PSYCHIATRIC: Denies anxiety, denies depression. HEMATOLOGIC/LYMPHATIC: Denies anemia, denies enlarged lymph nodes. Past Medical History Past Medical History: Cancer, COPD, Prostate Disorder Additional Past Medical History / Comment(s): colon cancer, lung cancer History of Any Multi-Drug Resistant Organisms: None Reported Past Surgical History: Back Surgery Additional Past Surgical History / Comment(s): Back surgery for Scoliosis, kandy in back. Past Anesthesia/Blood Transfusion Reactions: No Reported Reaction Past Psychological History: No Psychological Hx Reported Smoking Status: Current every day smoker Past Alcohol Use History: None Reported Past Drug Use History: None Reported - Past Family History Father Family Medical History: Cancer Medications and Allergies Home Medications Medication Instructions Recorded Confirmed Type Budesonide-Formot 160-4.5 Mcg 1 - 2 puff INHALATION RT-QID 11/04/21 12/25/23 History [Symbicort 160-4.5 Mcg Inhaler] Ipratropium/Albuter 20-100Mcg 1 puff INHALATION RT-QID 11/04/21 12/25/23 History [Combivent Respimat 20-100Mcg Inhaler] Albuterol Inhaler [Ventolin Hfa 1 - 2 puff INHALATION RT-Q6H PRN 12/24/23 12/25/23 History Inhaler] Albuterol Nebulized [Ventolin 2.5 mg INHALATION RT-QID 12/24/23 12/25/23 History Nebulized] Cholecalciferol [Vitamin D3 (25 50 mcg PO DAILY 12/24/23 12/25/23 History Mcg = 1000 Iu)] Dm/Acetaminophen/Doxylamine [Vicks 30 ml PO HS 12/24/23 12/25/23 History Nyquil Cold-Flu Liquid] Levofloxacin [Levaquin] 500 mg PO DAILY 12/24/23 12/25/23 History Methyl Salicylate/Menth/Camph 1 patch TOPICAL DAILY PRN 12/24/23 12/25/23 History [Salonpas 3.1%-6.0%-10.0% Patch] Mv-Min/Folic/K1/Lycopen/Lutein 1 tab PO DAILY 12/24/23 12/25/23 History [Centrum Silver Men Tablet] Nicotine 14Mg/24Hr Patch [Habitrol 1 patch TRANSDERM DAILY 12/24/23 12/25/23 History 14Mg/24Hr Patch] Sodium Chloride [[place]] 1 spray EA NOSTRIL QID PRN 12/24/23 12/25/23 History predniSONE 5 mg PO DAILY 12/24/23 12/25/23 History traMADol HCL 50 mg PO Q6H PRN 12/24/23 12/25/23 History Allergies Allergy/AdvReac Type Severity Reaction Status Date / Time No Known Allergies Allergy Verified 12/24/23 19:30 Physical Exam Vitals: Vital Signs Pulse Resp BP Pulse Ox FiO2 12/25/23 14:52 92 12 80/40 83 L 12/25/23 13:00 86 10 L 86 L 12/25/23 12:00 90 24 100 12/25/23 11:54 40 Intake and Output 12/25/23 12/25/23 12/25/23 06:59 14:59 22:59 Intake Total 1.19 Balance 1.19 Intake: Intake, IV Titration 1.19 Amount Morphine Sulfate (100 mg/ 1.19 2 ml) 100 mg In Sodium Chloride 0.9% 100 ml @ 2 MG/HR 2.04 mls/hr IV . Q24H [facility] Rx#:[id number] Other: Weight 46 kg GENERAL EXAM: Lethargic, 68-year-old frail male, on BiPAP 14/7 and 40% FiO2 comfortable in no apparent distress. HEAD: Normocephalic. EYES: Normal reaction of pupils, equal size. NOSE: Clear with pink turbinates. THROAT: No erythema or exudates. NECK: No masses, no JVD. CHEST: No chest wall deformity. LUNGS: Equal air entry with no crackles, wheeze, rhonchi or dullness. Diminished breath sounds. CVS: S1 and S2 normal with no audible murmur, regular rhythm. ABDOMEN: No hepatosplenomegaly, normal bowel sounds, no guarding or rigidity. SPINE: Significant dextroscoliosis with deformity SKIN: No rashes CENTRAL NERVOUS SYSTEM: No focal deficits, tone is normal in all 4 extremities. EXTREMITIES: There is no peripheral edema. No clubbing, no cyanosis. Peripheral pulses are intact. Results - Diagnostic Findings Chest x-ray: image reviewed Assessment and Plan Assessment: Acute hypoxemic respiratory failure secondary to an acute exacerbation of chronic obstructive pulmonary disease Chronic and ongoing tobacco dependence Metastatic colon cancer, too frail for treatment. Recent CT scan of December 08, 2023 revealed scattered small reticular nodular densities in the left lung base suspicious for metastatic disease. Marked dextroscoliosis of the lumbar spine. Retroperitoneal adenopathy with 5 enlarged lymph node/mass in the left inguinal region. Multiple lytic osseous lesions are suspected in the pelvis and hips. Altered mental status secondary to above requiring Ativan for agitation Frequent falls Severe dextroscoliosis Plan: The patient was seen and evaluated Chest x-ray, labs and medications reviewed Currently BiPAP dependent DNR/DNI CODE STATUS Hospice consult placed her 's request She remains at the bedside I have personally seen and examined the patient, performed the documentation and the assessment and plan as written. Number of minutes spent on the visit: 20.
--- NOTE | 2023-12-25 21:00 | P.DS ---
Providers Date of admission: 12/25/23 10:51 Expected date of discharge: 12/25/23 (Patient ) Attending physician: Rudy Warren Primary care physician: [facility] Course: Patient admitted to [facility] inpatient hospice for symptom control. Under [facility] hospice. Hospice orders were initiated. This was discussed with the earlier. Patient later in the day succumb to his underlying condition. Cause of : Metastatic colon cancer Plan - Discharge Summary Discharge Rx Participant: No New Discharge Prescriptions: No Action Budesonide-Formot 160-4.5 Mcg [Symbicort 160-4.5 Mcg Inhaler] 1 - 2 puff INHALATION RT-QID Ipratropium/Albuter 20-100Mcg [Combivent Respimat 20-100Mcg Inhaler] 1 puff INHALATION RT-QID Levofloxacin [Levaquin] 500 mg PO DAILY Methyl Salicylate/Menth/Camph [Salonpas 3.1%-6.0%-10.0% Patch] 1 patch TOPICAL DAILY PRN PRN Reason: Pain Mv-Min/Folic/K1/Lycopen/Lutein [Centrum Silver Men Tablet] 1 tab PO DAILY traMADol HCL 50 mg PO Q6H PRN PRN Reason: Pain predniSONE 5 mg PO DAILY Nicotine 14Mg/24Hr Patch [Habitrol 14Mg/24Hr Patch] 1 patch TRANSDERM DAILY Sodium Chloride [[place]] 1 spray EA NOSTRIL QID PRN PRN Reason: DRY NOSE Cholecalciferol [Vitamin D3 (25 Mcg = 1000 Iu)] 50 mcg PO DAILY Dm/Acetaminophen/Doxylamine [Vicks Nyquil Cold-Flu Liquid] 30 ml PO HS Albuterol Nebulized [Ventolin Nebulized] 2.5 mg INHALATION RT-QID Albuterol Inhaler [Ventolin Hfa Inhaler] 1 - 2 puff INHALATION RT-Q6H PRN PRN Reason: Shortness Of Breath Discharge Medication List Budesonide-Formot 160-4.5 Mcg [Symbicort 160-4.5 Mcg Inhaler] 1 - 2 puff INHALATION RT-QID 11/04/21 [History] Ipratropium/Albuter 20-100Mcg [Combivent Respimat 20-100Mcg Inhaler] 1 puff INHALATION RT-QID 11/04/21 [History] Albuterol Inhaler [Ventolin Hfa Inhaler] 1 - 2 puff INHALATION RT-Q6H PRN 12/24/23 [History] Albuterol Nebulized [Ventolin Nebulized] 2.5 mg INHALATION RT-QID 12/24/23 [History] Cholecalciferol [Vitamin D3 (25 Mcg = 1000 Iu)] 50 mcg PO DAILY 12/24/23 [History] Dm/Acetaminophen/Doxylamine [Vicks Nyquil Cold-Flu Liquid] 30 ml PO HS 12/24/23 [History] Levofloxacin [Levaquin] 500 mg PO DAILY 12/24/23 [History] Methyl Salicylate/Menth/Camph [Salonpas 3.1%-6.0%-10.0% Patch] 1 patch TOPICAL DAILY PRN 12/24/23 [History] Mv-Min/Folic/K1/Lycopen/Lutein [Centrum Silver Men Tablet] 1 tab PO DAILY 12/24/23 [History] Nicotine 14Mg/24Hr Patch [Habitrol 14Mg/24Hr Patch] 1 patch TRANSDERM DAILY 12/24/23 [History] Sodium Chloride [[place]] 1 spray EA NOSTRIL QID PRN 12/24/23 [History] predniSONE 5 mg PO DAILY 12/24/23 [History] traMADol HCL 50 mg PO Q6H PRN 12/24/23 [History] Follow up Appointment(s)/Referral(s): Rudy Warren MD [Primary Care Provider] - 1 Week
== END 2023-12-25 22:18 | disposition expired | DRG 951 ==
LOC: EC 10:41 → 5NMEDONC 10:51
PROVIDERS: ADMIT Hospitalist; ATTEND Hospitalist
PROC: 5A09357 Assistance with Respiratory Ventilation, Less than 24 Consecutive Hours, Continuous Positive Airway Pressure (ICD-10-PCS; principal; 2023-12-25)
DX: Z51.5 Encounter for palliative care (principal); J96.21 Acute and chronic respiratory failure with hypoxia; J96.01 Acute respiratory failure with hypoxia; J44.1 Chronic obstructive pulmonary disease with (acute) exacerbation; C78.5 Secondary malignant neoplasm of large intestine and rectum; C34.92 Malignant neoplasm of unspecified part of left bronchus or lung; M41.86 Other forms of scoliosis, lumbar region; R54 Age-related physical debility; Z66 Do not resuscitate; F17.210 Nicotine dependence, cigarettes, uncomplicated; N42.9 Disorder of prostate, unspecified; R59.0 Localized enlarged lymph nodes; R45.1 Restlessness and agitation; R29.6 Repeated falls; R41.82 Altered mental status, unspecified; Z85.118 Personal history of other malignant neoplasm of bronchus and lung; Z79.51 Long term (current) use of inhaled steroids; Z79.899 Other long term (current) drug therapy; Z28.310 Unvaccinated for COVID-19; Z91.81 History of falling